=== PATIENT | female | born 1940 | race Caucasian/White ===

== ENCOUNTER 2019-03-21 18:00 | Inpatient (IN) ==
--- OUTSIDE RECORDS SUMMARY | 2019-03-21 20:43 | External Medical Summary | Continuity of Care Document ---
:1940 Author Name Janiya Monteiro, Provider Address Unavailable Unavailable , Care Team Providers Name Role Phone Unavailable Unavailable Unavailable Problems E. 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.1) (G06.1) Hypercholesterolemia (272.0) (E78.00) Hypertension (401.9) (I10) A-fib (427.31) (I48.91) Allergies and Adverse Reactions No Known Drug Allergies (Allergy) Medications Medications not documented Procedures History of carotid artery angioplasty St atus: Completed Immunizations Immunizations not documented Family History Mother Family history of arthritis (V17.7) (Z82.61) Status: Active Father Family history of arthritis (V17.7) (Z82.61) Status: Active Social History - Smoking Status Former smoker Plan of Treatment Planned Observations Planned Goals not documented Results No Known Results Results not documented Encounters Appointment; Zora Conte DO 16-May-2018 10:45 Encounter Diagnosis: Problem not documented
[2019-03-21] MEDS ORDERED: MAGNESIUM HYDROXIDE SUSP 30 ML UDC PO PRN ×2 (21:10→22:26)
[2019-03-21] MEDS ORDERED: ALUMINUM/MAGNESIUM SUSP 30 ML UDC PO PRN (21:10)
[2019-03-21] MEDS ORDERED: POLYETHYLENE (MIRALAX) 17 GM PACK PO PRN (21:10)
[2019-03-21] MEDS ORDERED: SODIUM CHLORIDE 0.9% 1000ML 1,000 ML IV SCH (21:15)
[2019-03-21] MEDS ORDERED: OXYCODONE/ACETAMINOPHEN 5mg/325mg TAB PO PRN (21:24)
[2019-03-21] MEDS ORDERED: HydrALAZINE 10 MG TAB PO PRN (21:25)
[2019-03-21 21:47] LABS: Basophils # (auto) 0.01 K/uL (0-0.2); Basophils % (auto) 0.1 %; Eosinophils # (auto) 0.01 K/uL (0-0.5); Eosinophils % (auto) 0.1 %; Hematocrit (blood only) 37.6 % (37-47); Hemoglobin 12.7 g/dL (12.0-16.0); Immature Granulocytes # (auto) 0.02 K/uL (0.00-0.02); Immature Granulocytes % (auto) 0.2 %; Lymphocytes # (auto) 1.42 K/uL (1.2-3.4); Lymphocytes % (auto) 14.3 %; Mean Corpuscular Hemoglobin 32.6 pg (25-34); Mean Corpuscular Volume 96.4 fL (80-100); Mean Platelet Volume 10.4 fL (7.4-10.4); Monocytes # (auto) 0.62 K/uL (0.11-0.59); Monocytes % (auto) 6.2 %; Neutrophils # (auto) 7.86 K/uL (1.4-6.5); Neutrophils % (auto) 79.1 %; Platelet Count 178 K/uL (130-400); RDW Coefficient of Variation 14.8 % (11.5-14.5); RDW Standard Deviation 51.8 fL (36.4-46.3); White Blood Count 9.94 K/uL (4.8-10.8)
[2019-03-21 22:03] LABS: Mean Corpuscular Hgb Conc 33.8 g/dL (32-36)
[2019-03-21 22:04] LABS: Albumin Level 3.3 gm/dl (3.4-5.0); BUN Creatinine Ratio 15.7 (10-20); Calcium 8.9 mg/dl (8.5-10.1); Creatinine Clr Calc Pharmacy 42.3 ml/min; Est GFR (African American) 78.9; Est GFR (Non-African American) 68.1; Potassium 3.4 mmol/L (3.5-5.1)
[2019-03-21 22:08] LABS: Globulin 3.4 gm/dl (2.5-4.0); Total Protein 6.7 gm/dl (6.4-8.2)
[2019-03-21] MEDS ORDERED: ALBUTEROL HFA 8 GM INHALER INH PRN (22:26)
[2019-03-21] MEDS ORDERED: OXYCODONE ACETAMINOPHEN PO PRN (22:26)
[2019-03-21] MEDS ORDERED: OXYCODONE HCL IR 5 MG TAB (IMMEDIATE RELEASE) PO PRN (22:42)
--- NOTE | 2019-03-21 22:45 | History & Physical Report ---
Date of Service March 21, 2019 Assessment & Plan (1) Hip fracture, left: Admit to PCU on telemetry VS Q4 hr CBC, CMP, daily Elevated BNP - 2822, trend down. keep NPO for now until hear from Dr. Mairo valdez. TTE Consult cardiology after TTE for preop eval per Dr. Martin. Pt is not on Eliquis for a fibs for one month. DVT ppx SCD-s , teds Pain management, Full Code Present on Admission?: Yes (2) Dyslipidemia: Continue with Zetia 10 mg p.o. daily, continue simvastatin 40 mg p.o. nightly, continue fish oil 2 caps p.o. daily Present on Admission?: Yes (3) Hypokalemia: Replenish potassium and keep above 4. Magnesium pending Present on Admission?: Yes (4) Hypertension: Continue home medicine: Aspirin 81 mg p.o. every morning losartan 100 mg p.o. every morning, metoprolol 12.5 mg p.o. twice daily. Present on Admission?: Yes (5) Atrial fibrillation: EKG shows the patient is in normal sinus rhythm. T wave inversions in lateral leads. Repeat EKG in a.m. left bundle branch block. Present on Admission?: Yes (6) Depression: Continue citalopram 40 mg p.o. daily (7) Rheumatoid arthritis: Continue methotrexate 10 mg p.o. weekly. Present on Admission?: Yes History of Present Illness Chief Complaint: Fall, left hip fracture Primary Care Provider: NO PCP Patient is a 79 years old female with past medical history of prior paroxysmal atrial fibrillation with RVR, hypertension, RA, depression, dyslipidemia, pulmonary hypertension, mitral regurgitation, anemia, moderate dementia , epidural abscess status post spinal cord procedure by Dr. Vega a year ago who is direct admit from [facility] and status post fall that occurred this morning while patient was gardening. Per patient daughter who does not live with her she reports that possibly patient blacked out and that is why she fell. She said months ago patient had similar syncopal episode. Patient was in the past with atrial fibrillation and for 1 months she did not fill her Eliquis and because of it she was taken off of Eliquis by her primary physician. Today patient is in normal sinus rhythm. Patient is poor historian. Pt daughter denies that pt has fever, chills, chest pain, SOB , abdominal pain, frequency and urgency. She said that she does not remember exactly her fall. She remembers that she sat for a long time in her garden after she fell. Patient said for pain she only take Aleve. Labs were reviewed: Viable cell 9.94, hemoglobin 12.7, hematocrit 37.6, platelets 178, PT PTT INR pending, sodium 139,K 3.4, Chloride 109, BUN 6, creatinine 0.82, GFR 68.1, BNP 2822. CXR preop pending, XR L Hip Pending, TTE pending. Consult Ortho. Allergies Allergy/AdvReac Type Severity Reaction Status Date / Time No Known Allergies Allergy Unverified 03/15/18 14:35 Home Medications Home Medications Medication Instructions Recorded Confirmed Type ascorbate calcium-bioflavonoid 1 tab PO DAILY 03/12/18 03/12/18 History [Maribel-C with Bioflavonoids] calcium carbonate 600 mg PO BID 03/12/18 03/12/18 History citalopram 40 mg PO DAILY 03/12/18 03/12/18 History cranberry extract 250 mg PO DAILY 03/12/18 03/12/18 History ezetimibe [Zetia] 10 mg PO DAILY 03/12/18 03/12/18 History fluticasone propion-salmeterol 1 inh INHALATION BID 03/12/18 03/12/18 History [Advair Diskus] metoprolol tartrate 12.5 mg PO BID 03/12/18 03/12/18 History montelukast [Singulair] 10 mg PO PM 03/12/18 03/12/18 History multivitamin 1 tab PO DAILY 03/12/18 03/12/18 History omega 2-uvr-wfh-fish oil [Fish Oil] 2 cap PO DAILY 03/12/18 03/12/18 History simvastatin [Zocor] 40 mg PO HS 03/12/18 03/12/18 History aspirin [Ecotrin Low Strength] 81 mg PO QAM #30 tab 03/21/18 Rx garlic 500 mg PO DAILY 03/21/19 03/21/19 History losartan 100 mg PO QAM 03/21/19 03/21/19 History methotrexate sodium 10 mg PO WK 03/21/19 03/21/19 History Past Med/Surg History Medical History Atrial fibrillation Hx: UTI (urinary tract infection) Family History Other Family history non-contributory Social History Preferred Language: Greenlandic Communication Ability: Effective Visual Impairment: Limited Insect Control Inspector Required: No Beliefs That Will Affect Care: Cheondoism Cheondoism Beliefs: islam Current Living Situation: Family Other Information That Helps Us Care for You: No Feels Safe at Home: Yes Safety Concerns: Feels Safe At This Time Smoking Status: Current every day smoker Second Hand Exposure: No ; Hx Alcohol Use: No Hx Substance Use: No Review of Systems Review of Systems: All systems reviewed & are unremarkable except as noted in HPI & below Physical Exam Constitutional: WD/WN, vitals as above well developed and + frail appearing Eyes: PERRL, conjunctivae normal, anicteric sclerae ENMT: external ear and nose normal, oropharynx normal Neck: trachea midline, no thyromegaly Respiratory: normal respiratory effort, lungs clear to auscultation Cardiovascular: Heart Sounds: normal S1, normal S2 and + murmur Palpation: + palpable S4 Vessels: + JVD Gastrointestinal (Abdomen): normal bowel sounds, soft, nontender, no hepatosplenomegaly Musculoskeletal: Ankle: + limited ROM of ankle left hip neck fracture, Skin: no rashes, warm and dry Neurologic: patellar DTR's 2+ bilat, sensation intact Lymphatic: no cervical or axillary lymphadenopathy Results & Data Vital Signs (Past 12 Hours) Vital Signs Temp Pulse Resp BP Pulse Ox 03/21/19 20:30 36.5 C 97 H 18 216/97 H 96 Code Status & VTE Plan Code Status full code VTE Prophylaxis Plan VTE Prophylaxis will be ordered: No PG Care Time/CCT Total # of Minutes Spent Total Time Spent with Patient: Total time spent is greater than 50% in coordination of care (as documented) at patient's floor/unit and/or counseling patient:
--- NOTE | 2019-03-21 22:52 | XRay Report ---
XR chest 1V portable CLINICAL HISTORY: 79 years-old Female presenting with pre op. TECHNIQUE: Portable supine AP view of the chest was obtained. COMPARISON: 03/18/2018. FINDINGS: Atherosclerosis of the aortic arch. Cardiac silhouette enlarged. Bilateral hilar prominence may be va scular. No focal opacity. No large effusion or pneumothorax. Degenerative changes of the thoracic spi ne. Posterior lumbar fusion hardware at the thoracolumbar junction. Overlying external leads in the r ight upper quadrant to grating evaluation. Upper abdomen normal. IMPRESSION: 1. Cardiomegaly. 2. Bilateral hilar prominence may be vascular in etiology. The appearance is similar to prior. No ot her convincing evidence of acute cardiopulmonary disease. Electronically signed by: Danis Valles M.D. 03/21/2019 10:50 PM
--- NOTE | 2019-03-21 22:53 | XRay Report ---
XR hip LT min 2V CLINICAL HISTORY: 79 years-old Female presenting with left hip fracture. TECHNIQUE: Frontal and crosstable lateral views of the left hip were obtained. COMPARISON: CT of abdomen and pelvis from 03/12/2018. FINDINGS: Transcervical fracture of the left femoral neck with one half shaft width proximal and anterior displ acement of the distal fracture fragment. No angulation. The left femoral head remains congruent in th e acetabulum. Visualized portion of the pelvis intact. No advanced degenerative change. No radiograph ic soft tissue abnormality. IMPRESSION: One half shaft width proximal and anterior displacement at the transcervical left femoral neck fractu re. Electronically signed by: Danis Valles M.D. 03/21/2019 10:52 PM
[2019-03-21 22:55] LABS: INR 1.1 (0.9-1.1); Partial Thromboplastin Ratio 0.9; Partial Thromboplastin Time 25.5 Seconds (21.0-31.0); Prothrombin Time 10.8 Seconds (9.0-12.0)
[2019-03-21] MEDS: MoRPHine SULFATE 2 MG/ML CARP IV PRN (22:55)
[2019-03-21] MEDS ORDERED: POTASSIUM CHLORIDE 20 MEQ TABCR PO ONE (23:00)
[2019-03-22] MEDS: MoRPHine SULFATE 2 MG/ML CARP IV PRN ×4 (00:57→11:39)
[2019-03-22 06:28] LABS: Basophils # (auto) 0.02 K/uL (0-0.2); Basophils % (auto) 0.2 %; Eosinophils # (auto) 0.11 K/uL (0-0.5); Eosinophils % (auto) 1.3 %; Hematocrit (blood only) 36.3 % (37-47); Immature Granulocytes # (auto) 0.02 K/uL (0.00-0.02); Immature Granulocytes % (auto) 0.2 %; Lymphocytes % (auto) 27.2 %; Mean Corpuscular Hemoglobin 32.4 pg (25-34); Mean Corpuscular Hgb Conc 33.1 g/dL (32-36); Mean Corpuscular Volume 98.1 fL (80-100); Mean Platelet Volume 10.5 fL (7.4-10.4); Monocytes # (auto) 0.77 K/uL (0.11-0.59); Monocytes % (auto) 9.1 %; Neutrophils # (auto) 5.23 K/uL (1.4-6.5); Platelet Count 174 K/uL (130-400); RDW Coefficient of Variation 15.1 % (11.5-14.5); RDW Standard Deviation 53.6 fL (36.4-46.3); White Blood Count 8.45 K/uL (4.8-10.8)
[2019-03-22 07:32] LABS: Albumin Level 3.1 gm/dl (3.4-5.0); BUN Creatinine Ratio 14.5 (10-20); Calcium 8.7 mg/dl (8.5-10.1); Creatinine Clr Calc Pharmacy 42.9 ml/min; Est GFR (African American) 80.1; Est GFR (Non-African American) 69.1; Total Protein 6.1 gm/dl (6.4-8.2)
[2019-03-22] MEDS: FLUTICASONE/SALMETEROL 250/50 (ADVAIR) 14 PUFF/1 INHALER INH SCH ×2 (08:31→21:41)
[2019-03-22] MEDS: FOLIC ACID 1 MG TAB PO SCH (08:32)
[2019-03-22] MEDS: POTASSIUM CHLORIDE 10 MEQ TABCR PO SCH (08:32)
[2019-03-22] MEDS: EZETIMIBE 10 MG TABLET PO SCH (08:32)
[2019-03-22] MEDS: METOPROLOL TARTRATE 25 MG TAB PO SCH ×2 (08:33→21:43)
[2019-03-22] MEDS: CITALOPRAM 40 MG TAB PO SCH (08:33)
[2019-03-22] MEDS: DOCUSATE SODIUM/SENNA 50/8.6MG TAB PO SCH (08:33)
[2019-03-22] MEDS: MULTIVITAMIN TAB PO SCH (08:34)
[2019-03-22] MEDS: CALCIUM CARBONATE 1250MG TAB PO SCH ×2 (08:34→21:42)
[2019-03-22] MEDS: OMEGA-3 (PURIFIED FISH OIL) 1 GM CAP PO SCH (08:34)
[2019-03-22] MEDS: CHOLECALCIFEROL 1,000 UNITS TAB PO SCH (08:34)
[2019-03-22] MEDS: OLMESARTAN MEDOXOMIL 20 MG TAB PO SCH (08:40)
[2019-03-22] MEDS ORDERED: NON-FORMULARY MEDICATION (Ascorbate Calcium-Bioflavonoid [Ester-C With Bioflavonoids] 1 TA PO SCH (09:00)
[2019-03-22] MEDS ORDERED: lisinopriL 20 MG TAB PO SCH (09:00)
[2019-03-22] MEDS ORDERED: CRANBERRY EXTRACT 250 MG PO SCH (09:00)
[2019-03-22] MEDS: ACETAMINOPHEN 325 MG TAB PO PRN (09:06)
--- NOTE | 2019-03-22 12:03 | Orthopedic Consultation ---
Date of Consultation March 22, 2019 Assessment & Plan (1) Hip fracture, left: Pending medical clearance, patient will need a bipolar hemiarthroplasty versus total hip arthroplasty. This will be decided prior surgery by the operating surgeon. Her daughter is present and states that she is basically a household ambulator. She does not go out very often. She no longer drives. Plan for the OR later this afternoon pending clearance. Supervising Physician Co-Signing Physician Notes I have indicated the patient for left hip hemiarthroplasty. The risk benefits complications alternatives of the surgery were explained to the patient and family member present at bedside in detail which include however not limited to infections, blood clots, acute blood loss, injury to surrounding nerves, bone, vessels, soft tissue, arthrofibrosis, chronic pain, hip dislocation, leg length discrepancy, failure of components or implants. Need for repeat surgery, loss of limb and loss of life. Alternatives include no surgery which could result in worsening of clinical pictures and symptoms, non-amatory status and associated complications. The patient and family member wish to proceed with surgical intervention at this time and informed consent was obtained. Antibiotics process consultant the OR Hold anticoagulation N.p.o. Bedrest History of Present Illness Reason for Consultation: Left hip fracture Attending Physician: Jose C Adame History of Present Illness Patient is a 79-year-old white female who was admitted under the medicine service last night for left hip fracture. Currently the patient is awake and alert and has history of dementia. She is pleasant and cooperative. Her daughter is present who is power of privacy attorney. Patient states that she had fallen the previous evening. The question of whether she had passed out and fallen. She states she bumped her head but it no longer hurts. When she fell she had moderate hip pain and was having difficulty ambulating. She denies any shortness of breath or chest pain prior to or after the fall. She was brought to the emergency room where she was seen by the staff, x-rays were taken and found that she had a displaced femoral neck fracture. He was admitted under the hospitalist service and we have been asked to take care of her fracture. Currently she is pleasant and alert. She answers some questions appropriately. She has trouble remembering the evening of her fall. She has no other complaints other than left hip pain at this point in time. Allergies Allergy/AdvReac Type Severity Reaction Status Date / Time No Known Allergies Allergy Unverified 03/15/18 14:35 Home Medications Home Medications Medication Instructions Recorded Confirmed Type ascorbate calcium-bioflavonoid 1 tab PO DAILY 03/12/18 03/12/18 History [Maribel-C with Bioflavonoids] calcium carbonate 600 mg PO BID 03/12/18 03/12/18 History citalopram 40 mg PO DAILY 03/12/18 03/12/18 History cranberry extract 250 mg PO DAILY 03/12/18 03/12/18 History ezetimibe [Zetia] 10 mg PO DAILY 03/12/18 03/12/18 History fluticasone propion-salmeterol 1 inh INHALATION BID 03/12/18 03/12/18 History [Advair Diskus] metoprolol tartrate 12.5 mg PO BID 03/12/18 03/12/18 History montelukast [Singulair] 10 mg PO PM 03/12/18 03/12/18 History multivitamin 1 tab PO DAILY 03/12/18 03/12/18 History omega 1-lyi-yqf-fish oil [Fish Oil] 2 cap PO DAILY 03/12/18 03/12/18 History simvastatin [Zocor] 40 mg PO HS 03/12/18 03/12/18 History aspirin [Ecotrin Low Strength] 81 mg PO QAM #30 tab 03/21/18 Rx garlic 500 mg PO DAILY 03/21/19 03/21/19 History losartan 100 mg PO QAM 03/21/19 03/21/19 History methotrexate sodium 10 mg PO WK 03/21/19 03/21/19 History Patient History Medical History COPD (chronic obstructive pulmonary disease) LBBB (left bundle branch block) Rheumatoid arthritis Depression Atrial fibrillation Anemia Tricuspid regurgitation (Chronic) Mitral regurgitation (Chronic) Pulmonary hypertension (Chronic) Hypertension (Chronic) Atrial fibrillation Hx: UTI (urinary tract infection) Surgical History Hx of lumbosacral spine surgery 03/15/2018. Epidural abscess. GETA. No issues. Family History Other Family history non-contributory Social History Preferred Language: Yi Communication Ability: Effective Visual Impairment: Limited Wardrobe Mistress Required: No Beliefs That Will Affect Care: Congregational Congregational Beliefs: samaritan Current Living Situation: Family Other Information That Helps Us Care for You: No Feels Safe at Home: Yes Safety Concerns: Feels Safe At This Time Smoking Status: Current every day smoker Do You Dip or Chew Tobacco: No ; Second Hand Exposure: No ; Hx Alcohol Use: No Hx Substance Use: No Review of Systems Review of Systems: All systems reviewed & are unremarkable except as noted in HPI & below Constitutional: as per Subjective / HPI Physical Exam Physical Exam: On examination she is a 79-year-old white female who appears younger than her stated age. She is pleasant and cooperative. Focusing exam in the left lower extremity, it is shortened and externally rotated compared to the right. She has good range of motion of her left ankle and toes. No overt swelling noted. Her left knee appears benign with no swelling or bruising. Range of motion is not done secondary to left hip fracture. Left hip is not taken through range of motion due to fracture. She has no overt ecchymosis noted over the lateral hip and is mildly tender on palpation. Right lower extremity is within normal limits at the hip knee and ankle with good range of motion. Upper extremities are essentially unaffected. She is nontender in the shoulders elbows and wrists. She did get a small abrasion noted on the left elbow but has good range of motion. Distal pulses are equal bilaterally. She denies any cervical neck pain, thoracic or low back pain at this time. No gross motor or sensory loss at this time. LLE NVSI +EHL/FHL/TA/GS SILT grossly, +2 DP pulse, compartments soft NT, essential tremor Constitutional: WD/WN, vitals as above Results & Data Vital Signs (Past 12 Hours) Vital Signs Temp Pulse Pulse Resp BP Pulse Ox 03/22/19 07:59 72 03/22/19 07:12 36.5 C 75 19 156/71 H 94 03/22/19 04:20 36.9 C 72 20 149/57 H 96 Diagnostic Findings XR hip LT min 2V CLINICAL HISTORY: 79 years-old Female presenting with left hip fracture. TECHNIQUE: Frontal and crosstable lateral views of the left hip were obtained. COMPARISON: CT of abdomen and pelvis from 03/12/2018. FINDINGS: Transcervical fracture of the left femoral neck with one half shaft width proximal and anterior displacement of the distal fracture fragment. No angulation. The left femoral head remains congruent in the acetabulum. Visualized portion of the pelvis intact. No advanced degenerative change. No radiographic soft tissue abnormality. IMPRESSION: One half shaft width proximal and anterior displacement at the transcervical left femoral neck fracture.
[2019-03-22] MEDS ORDERED: ONDANSETRON INJ 2 MG/ML 2 ML VIAL ONE (12:16)
[2019-03-22] MEDS ORDERED: PHENYLEPHRINE HCL 10 MG/ML VIAL ONE (12:16)
[2019-03-22] MEDS ORDERED: GLYCOPYRROLATE 0.2 MG/ML VIAL ONE (12:16)
[2019-03-22] MEDS ORDERED: NEOSTIGMINE METHYLSULFATE 5 MG/5 ML SYR ONE (12:16)
[2019-03-22] MEDS ORDERED: DEXAMETHASONE SOD INJ 4 MG/ML VIAL ONE (12:16)
[2019-03-22] MEDS ORDERED: ePHEDrine sulfate 50 MG/ML SYR ONE (12:16)
[2019-03-22] MEDS ORDERED: PROPOFOL IV EMULSION 10 MG/ML 20 ML VIAL IV ONE (12:16)
[2019-03-22] MEDS ORDERED: LIDOCAINE HCL 2% 2 ML VIAL/AMP(20MG/ML) INFIL ONE (12:16)
[2019-03-22] MEDS ORDERED: ROCURONIUM BROMIDE 10 MG/ML 5 ML VIAL ONE (12:16)
--- NOTE | 2019-03-22 12:51 | XRay Report ---
XR femur LT 2V routine CLINICAL HISTORY: fracture trauma COMPARISON: 03/21/2018 DISCUSSION: Unchanged appearance of the subcapital fracture left femur. There continues to be a compo nent of superior migration of the left femoral shaft. This is unchanged. There is no evidence for sof t tissue swelling. IMPRESSION: 1. Unchanged subcapital fracture left hip. 2. Unchanged mild superior migration left femoral shaft. The above report was generated using voice recognition software. It may contain grammatical, syntax or spelling errors. Electronically signed by: Devonte Cuba M.D. 03/22/2019 12:50 PM
[2019-03-22] MEDS ORDERED: fentaNYL citrate 100 MCG/2 ML VIAL ONE ×2 (13:06→16:34)
[2019-03-22] MEDS ORDERED: MIDAZOLAM HCL 1 MG/ML 2ML VIAL ONE (13:06)
--- NOTE | 2019-03-22 13:19 | Hospitalist Progress Note ---
Date of Service March 22, 2019 Assessment & Plan (1) Hip fracture, left: to OR today for ORIF. likely osteoporotic hip fracture. from cardiopulmonary standpoint she is likely moderate risk for cardiovascular events. chronic TURNER is likely due to COPD; she has no known CAD but could easily have some based on years of tobacco usage. echo is still pending but past echos did now show LV dysfunction. she is at risk of perioperative PAF, diastolic CHF, etc. Dr Maldonado to see from cardiology but I do not suspect she needs any additional CV testing prior to the OR. check vitamin D level AM. defer DVT proph selection to orthopedics. pain control in meantime. (2) Syncope: Etiology uncertain but lack of prodromal symptoms is highly suspicious for arrythmiogenic causes (bradycardia, pauses, etc). Dr Maldonado has seen in consult today. Could implant a loop recorder to try and capture the electrical cause of these events however it may simply be safer for the patient to undergo pacemaker placement. Continue telemetry. await formal echo reading. appreciate Dr Maldonado's consultation. (3) LBBB (left bundle branch block): had incomplete LBBB in 2018; now has LBBB. doubt underlying CAD as cause. echo pending to check LV function. LBBB may be on basis of electrical axis deterioration/conduction disease. (4) Dyslipidemia: Continue with Zetia 10 mg p.o. daily, continue simvastatin 40 mg p.o. nightly, continue fish oil 2 caps p.o. daily (5) Hypokalemia: Replenished and improved (6) Hypertension: Continue metoprolol 12.5 mg p.o. twice daily but hold ARB (7) Atrial fibrillation: h/o PAF. is not on chronic anticoagulation. see discussion above in "syncope." cont BB. (8) Depression: Continue citalopram 40 mg p.o. daily (9) Rheumatoid arthritis: Continue methotrexate 10 mg p.o. weekly. no flare at this time. (10) COPD (chronic obstructive pulmonary disease): cont advair cont albuterol prn no exacerbation at this time chronic TURNER is likely due to COPD (11) Pulmonary hypertension: could be due to COPD likely contributing to TURNER (12) Chronic kidney disease, stage 3a: baseline CrCl 40s/50s bmp am (13) Candidiasis of mouth and esophagus: start nystatin 5cc qid (14) DVT prophylaxis: defer selection to orthopedics daughter extensively updated today Subjective pt was resting in bed during my visit. she c/o left hip pain only. since arrival to hospital tele has shown NSR without pauses, bradycardia, AV block, or other dysrhythmia. daughter at bedside. pt and daughter state there have been at least 2 episodes of syncope, perhaps 3, and 1 of them was fully witnessed by her daughter. there is NO prodromal symptoms of dizziness, lightheadedness, cp, palpitations, etc prior to the spells.. daughter doesn't recall her looking pale, diaphoretic, etc during the spells -- she "simply goes blank". she has NOT had any chest pain with activities over the last few months. she has baseline TURNER - present for long time - in setting of known COPD. she is an active smoker. TURNER has been getting worse for some time as confirmed by daughter. despite TURNER she has been able to carry on most ADLs at home and again was gardening yesterday. no h/o CAD. no family h/o CAD. Review of Systems Constitutional: no fever Respiratory: + dyspnea on exertion (baseline); no cough Cardiovascular: + syncope; no chest pain, no orthopnea, no paroxysmal nocturnal dyspnea, no palpitations, no lightheadedness and no edema Gastrointestinal: no abdominal pain, no nausea and no vomiting Physical Exam Constitutional: + thin; no acute distress and no altered mental status ENMT: Mouth: + oral mucosal abnormality (?mild thrush plaques) Respiratory: normal respiratory effort, lungs clear to auscultation Cardiovascular: Rate/Rhythm: regular rate and regular rhythm Heart Sounds: normal S1 and normal S2; no murmur Vessels: posterior tibial pulses present and dorsalis pedis pulses present; no JVD Extremities: no edema Gastrointestinal (Abdomen): normal bowel sounds, soft, nontender, no he patosplenomegaly Musculoskeletal: left hip externally rotated; left leg mildly shortened Psychiatric: A+Ox3, euthymic affect Results & Data Vital Signs (Past 12 Hours) Vital Signs Temp Pulse Pulse Resp BP Pulse Ox 03/22/19 07:59 72 03/22/19 07:12 36.5 C 75 19 156/71 H 94 03/22/19 04:20 36.9 C 72 20 149/57 H 96 Laboratory Results Laboratory Results - last 24 hr 03/22/19 03/22/19 03/22/19 06:05 06:05 14:44 WBC 8.45 RBC 3.70 L Hgb 12.0 Hct 36.3 L MCV 98.1 MCH 32.4 MCHC 33.1 RDW Std Deviation 53.6 H RDW Coeff of Giuliana 15.1 H Plt Count 174 MPV 10.5 H Immature Gran % (Auto) 0.2 Neut % (Auto) 62.0 Lymph % (Auto) 27.2 [place] % (Auto) 9.1 Eos % (Auto) 1.3 Baso % (Auto) 0.2 Immature Gran # (Auto) 0.02 Neut # (Auto) 5.23 Lymph # (Auto) 2.30 [place] # (Auto) 0.77 H Eos # (Auto) 0.11 Baso # (Auto) 0.02 Sodium 140 Potassium 4.0 D Chloride 110 H Carbon Dioxide 25 Anion Gap 6.0 BUN 12 Creatinine 0.81 Est Cr Clr Drug Dosing 42.9 Est GFR ( Amer) 80.1 Est GFR (Non-Af Amer) 69.1 BUN/Creatinine Ratio 14.5 Glucose 102 H Calcium 8.7 Total Bilirubin 1.0 AST 26 ALT 21 Alkaline Phosphatase 66 Total Protein 6.1 L Albumin 3.1 L Globulin 3.0 Albumin/Globulin Ratio 1.0 Lyme Disease IgG Ab Lyme Disease IgM Ab Blood Type O Positive Antibody Screen NEGATIVE 03/22/19 14:48 WBC RBC Hgb Hct MCV MCH MCHC RDW Std Deviation RDW Coeff of Giuliana Plt Count MPV Immature Gran % (Auto) Neut % (Auto) Lymph % (Auto) [place] % (Auto) Eos % (Auto) Baso % (Auto) Immature Gran # (Auto) Neut # (Auto) Lymph # (Auto) [place] # (Auto) Eos # (Auto) Baso # (Auto) Sodium Potassium Chloride Carbon Dioxide Anion Gap BUN Creatinine Est Cr Clr Drug Dosing Est GFR ( Amer) Est GFR (Non-Af Amer) BUN/Creatinine Ratio Glucose Calcium Total Bilirubin AST ALT Alkaline Phosphatase Total Protein Albumin Globulin Albumin/Globulin Ratio Lyme Disease IgG Ab Negative Lyme Disease IgM Ab Negative Blood Type Antibody Screen PG Care Time/CCT Total # of Minutes Spent Total Time Spent with Patient: Total time spent is greater than 50% in coordination of care (as documented) at patient's floor/unit and/or counseling patient: (1) Rheumatoid arthritis Rheumatoid arthritis location: multiple sites Rheumatoid factor presence: unspecified presence Qualified Code(s): M06.9 - Rheumatoid arthritis, unspecif ied (2) Atrial fibrillation Atrial fibrillation type: paroxysmal Qualified Code(s): I48.0 - Paroxysmal atrial fibrillation (3) Depression Depression Type: other depression Qualified Code(s): F32.89 - Other specified depressive episodes (4) COPD (chronic obstructive pulmonary disease) COPD type: unspecified COPD Qualified Code(s): J44.9 - Chronic obstructive pulmonary disease, unspecified (5) Hip fracture, left Encounter type: subsequent encounter Fracture type: closed Fracture healing: with routine healing Qualified Code(s): S72.002D - Fracture of unspecified part of neck of left femur, subsequent encounter for closed fracture with routine healing (6) Hypertension Hypertension type: essential hypertension Qualified Code(s): I10 - Essential (primary) hypertension (7) Syncope Syncope type: unspecified Qualified Code(s): R55 - Syncope and collapse
--- NOTE | 2019-03-22 14:16 | Anesthesiology Consultation ---
Date of Service March 22, 2019 Assessment & Plan (1) Encounter for pre-operative examination: Chart Review Chart Review: Acceptable Risk for Surgery and Patient NOT seen in Pre Admission Testing Consults Requested none History Surgery Operation Date: 03/22/19 11:30 Proposed Procedures p Left Bipolar Hip - Hima Rice DO Height/Weight Height: 5 ft 6 in Weight: 48.2 kg Allergies Allergy/AdvReac Type Severity Reaction Status Date / Time No Known Allergies Allergy Unverified 03/15/18 14:35 Medications Home Medications Medication Instructions Recorded Confirmed Last Taken ascorbate calcium-bioflavonoid 1 tab PO DAILY 03/12/18 03/12/18 Unknown [Maribel-C with Bioflavonoids] calcium carbonate 600 mg PO BID 03/12/18 03/12/18 Unknown citalopram 40 mg PO DAILY 03/12/18 03/12/18 Unknown cranberry extract 250 mg PO DAILY 03/12/18 03/12/18 Unknown ezetimibe [Zetia] 10 mg PO DAILY 03/12/18 03/12/18 Unknown fluticasone propion-salmeterol 1 inh INHALATION BID 03/12/18 03/12/18 Unknown [Advair Diskus] metoprolol tartrate 12.5 mg PO BID 03/12/18 03/12/18 Unknown montelukast [Singulair] 10 mg PO PM 03/12/18 03/12/18 Unknown multivitamin 1 tab PO DAILY 03/12/18 03/12/18 Unknown omega 0-tes-viy-fish oil [Fish Oil] 2 cap PO DAILY 03/12/18 03/12/18 Unknown simvastatin [Zocor] 40 mg PO HS 03/12/18 03/12/18 Unknown aspirin [Ecotrin Low Strength] 81 mg PO QAM #30 tab 03/21/18 Unknown garlic 500 mg PO DAILY 03/21/19 03/21/19 Unknown losartan 100 mg PO QAM 03/21/19 03/21/19 Unknown methotrexate sodium 10 mg PO WK 03/21/19 03/21/19 Unknown Active Medications Generic Name Dose Route Start Last Admin Trade Name Freq PRN Reason Stop Dose Admin Acetaminophen 650 mg 03/21/19 21:10 03/22/19 09:06 Tylenol PO 04/20/19 21:09 650 mg Q4H PRN Administration Pain or Fever Calcium Carbonate 1,250 mg 03/22/19 09:00 03/22/19 08:34 Os-Jairo 500 PO 04/21/19 08:59 1,250 mg BID MARY Administration Protocol Citalopram Hydrobromide 40 mg 03/22/19 09:00 03/22/19 08:33 Celexa PO 04/21/19 08:59 40 mg DAILY MARY Administration Ezetimibe 10 mg 03/22/19 09:00 03/22/19 08:32 Zetia PO 04/21/19 08:59 10 mg DAILY MARY Administration Fish Oil 2 gm 03/22/19 09:00 03/22/19 08:34 [place]-3 (Purified Fish Oil) PO 04/21/19 08:59 2 gm DAILY MARY Administration Folic Acid 1 mg 03/22/19 09:00 03/22/19 08:32 Folvite PO 04/21/19 08:59 1 mg DAILY MARY Administration Hydralazine HCl 10 mg 03/21/19 21:25 03/21/19 22:52 Apresoline PO 04/21/19 08:59 10 mg TID PRN Administration for blood pressure Lisinopril 20 mg 03/22/19 09:00 03/22/19 08:32 Zestril PO 04/21/19 08:59 20 mg QAM MARY Administration Metoprolol Tartrate 12.5 mg 03/22/19 09:00 03/22/19 08:33 Lopressor PO 04/21/19 08:59 12.5 mg BID MARY Administration Morphine Sulfate 1 mg 03/21/19 21:24 03/22/19 11:39 Morphine Sulfate IV 04/04/19 21:23 1 mg Q2H PRN Administration Pain Multivitamins 1 tab 03/22/19 09:00 03/22/19 08:34 Multivitamin Tab PO 04/21/19 08:59 1 tab DAILY MARY Administration Olmesartan 40 mg 03/22/19 09:00 03/22/19 08:40 Benicar PO 04/21/19 08:59 40 mg DAILY MARY Administration Potassium Chloride 10 meq 03/22/19 09:00 03/22/19 08:32 Klor-Con M10 PO 04/21/19 08:59 10 meq DAILY MARY Administration Fluticasone/Salmeterol 1 puffs 03/22/19 09:00 03/22/19 08:31 Advair Diskus 250/50 INH 04/21/19 08:59 1 puffs BID MARY Administration Senna/Docusate Sodium 1 tab 03/22/19 09:00 03/22/19 08:33 Senokot S PO 04/21/19 08:59 1 tab QAM MARY Administration Vitamin D 1,000 units 03/22/19 09:00 03/22/19 08:34 Vitamin D3 PO 04/21/19 08:59 1,000 units DAILY MARY Administration NPO Date Last Intake of Fluids: 03/22/19 Time Last Intake of Fluids: 12:00 Last Intake of Fluids Comment: Sips meds Date Last Intake of Solids: 03/21/19 Time Last Intake of Solids: 10:00 Past Medical History Medical History COPD (chronic obstructive pulmonary disease) LBBB (left bundle branch block) Rheumatoid arthritis Depression Atrial fibrillation Anemia Tricuspid regurgitation (Chronic) Mitral regurgitation (Chronic) Pulmonary hypertension (Chronic) Hypertension (Chronic) Atrial fibrillation Hx: UTI (urinary tract infection) Exercise / Class Metabolic Activity III < 4 Walking/Shop/Light housework Past Family History Family History Other Family history non-contributory Past Surgical History Surgical History Hx of lumbosacral spine surgery 03/15/2018. Epidural abscess. GETA. No issues. Past Anesthesia History No Hx of Anesthesia Complications and No Family Hx of Anesthesia Complications History of PONV No Hx of PONV and No Hx of Motion Sickness Social History Smoking Status: Current every day smoker Do You Dip or Chew Tobacco: No Hx Alcohol Use: No Hx Substance Use: No Physical Exam Vital Signs Last Vital Signs Temp 37.2 C 03/22/19 14:38 Pulse 67 03/22/19 14:38 Resp 18 03/22/19 14:38 BP 168/79 H 03/22/19 14:38 Pulse Ox 95 03/22/19 14:38 Testing Laboratory Results 03/22/19 06:05 03/22/19 06:05 PT 10.8 Seconds (9.0-12.0) 03/21/19 21:33 INR 1.1 (0.9-1.1) 03/21/19 21:33 APTT 25.5 Seconds (21.0-31.0) 03/21/19 21:33 Electrocardiogram Date: 03/21/19 Findings: + NSR @ (81) Poor data quality, interpretation may be adversely affected Normal sinus rhythm Left bundle branch block Abnormal ECG When compared with ECG of 12-MAR-2018 18:37, Premature atrial complexes are no longer Present Left bundle branch block is now Present Echocardiogram Date: 03/13/18 Normal BiV systolic function. Normal Left ventricular wall motion Moderate LVH Moderate MR, TR Moderately increased RV systolic pressure. No . Other Testing echo 03/22/19. no sig change from 2018. ef 60%
[2019-03-22] MEDS ORDERED: BACITRACIN INJ 50,000 UNIT VIAL ONE (14:41)
[2019-03-22] MEDS ORDERED: ePHEDrine sulfate 50 MG/ML AMP IV PRN (15:04)
[2019-03-22] MEDS ORDERED: ONDANSETRON INJ 2 MG/ML 2 ML VIAL IV PRN (15:04)
[2019-03-22] MEDS ORDERED: fentaNYL citrate 100 MCG/2 ML VIAL IV PRN (15:04)
[2019-03-22] MEDS ORDERED: ATROPINE SULFATE 0.1 MG/ML 10ML SYR IV PRN (15:04)
[2019-03-22] MEDS ORDERED: ROPIVACAINE 0.5% HCL/PF 150 MG, BUPIVACAINE 0.5% MPF 30 ML, EPINEPHrine 30MG/30ML (OR U... INSTIL SCH (15:30)
[2019-03-22] MEDS ORDERED: CEFAZOLIN 1000MG 1,000 MG/7.5 ML SYR IV ONE (15:42)
--- NOTE | 2019-03-22 15:47 | History & Physical Bridge Note ---
Date of Service March 22, 2019 History & Physical Bridge Note I have examined the patient, reviewed the History & Physical and in the interval since the performance of the History & Physical I have noted the following changes of clinical significance: no changes noted
[2019-03-22] MEDS ORDERED: CEFAZOLIN 1,000 MG/7.5 ML IV PUSH IV ONE (15:50)
--- NOTE | 2019-03-22 16:06 | Cardiology Consultation ---
Date of Consultation March 22, 2019 Assessment & Plan (1) Syncope: She presents with her third sudden syncopal event, all without prodrome and all brief. On this occasion she fell on cement and broke her hip. Given her left bundle branch block and the sudden brief nature of these events the most likely etiology is cardiac, most likely transient bradycardia. Tachycardia is possible, she does have a history of palpitations but not associated with hemodynamic symptoms and she did not have palpitations associated with these events. We do need to try to either find out why she has these events (which would require loop recorder) or we can treat the most likely cause of the event, which would be bradycardia, which would require a pacemaker. Coincidently her sister had a similar sequence of events and now has a pacemaker after having a loop recorder in place. Her and her daughter are leaning toward this option. In the meantime I think she should go ahead and have her hip surgery, I would recommend attaching her to an external temporary pacemaker during surgery in case she would develop heart block. I do not think a temporary pacemaker is indicated. (2) LBBB (left bundle branch block): She has a left bundle branch block pattern, she has had progressive AV conduction disease in the past has not had normal conduction but her QRS is now wider. This suggests progressive disease. I am going to order a Lyme titer to make sure it is not Lyme disease since that is treatable, if not I suspect most likely cause of her syncope was heart block. 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 That is associate with palpitations and she has not had hemodynamic symptoms when she had the tachycardia. I doubt this is a cause of her syncopal events. Supervising Physician Co-Signing Physician Notes I have indicated the patient for left hip hemiarthroplasty. The risk benefits complications alternatives of the surgery were explained to the patient and family member present at bedside in detail which include however not limited to infections, blood clots, acute blood loss, injury to surrounding nerves, bone, vessels, soft tissue, arthrofibrosis, chronic pain, hip dislocation, leg length discrepancy, failure of components or implants. Need for repeat surgery, loss of limb and loss of life. Alternatives include no surgery which could result in worsening of clinical pictures and symptoms, non-amatory status and associated complications. The patient and family member wish to proceed with surgical intervention at this time and informed consent was obtained. Antibiotics operations support professionals the OR Hold anticoagulation N.p.o. Bedrest History of Present Illness Reason for Consultation: Syncope Attending Physician: Jose C Adame History of Present Illness I saw and examined the patient in her room prior to transport to the OR. Her daughter was present during the interview. Her and her daughter both agree that she has had 3 episodes of nabil syncope over the last several months, the first 2 did not result in injury however the episode prompting this admission resulted in a fall on a cement patio and resulted in a hip fracture for which she now needs surgery. The 3 episodes are similar both by the patient's description and her daughter, who witnessed 1 of them. The one that her daughter witnessed occurred in the house, she apparently was walking and then just suddenly without warning collapsed to the floor. She regained consciousness fairly quickly, there is no seizure-like activity and she had no recollection of how she came. Tripping did not seem to be a cause. The other ones were not witnessed, however the patient reports the same sensation that she suddenly wakes up on the ground with no recollection of how she got there. She has no other sensation, she specifically has no palpitations around the time of these events (however she does notably have palpitations at other times where she feel her heart beat rapidly for brief periods of time but has no hemodynamic symptoms from it). She also has no chest discomfort. She has had no change in her exercise ability and no orthopnea or PND or peripheral edema. She has been observed to have progressive QRS widening with an IVCD pattern in the past which has now progressed to a left bundle branch block pattern. She does live near the [facility] but I do not believe has been tested for Lyme disease. She does not have symptoms of it however. Allergies Allergy/AdvReac Type Severity Reaction Status Date / Time No Known Allergies Allergy Unverified 03/15/18 14:35 Home Medications Home Medications Medication Instructions Recorded Confirmed Type ascorbate calcium-bioflavonoid 1 tab PO DAILY 03/12/18 03/12/18 History [Maribel-C with Bioflavonoids] calcium carbonate 600 mg PO BID 03/12/18 03/12/18 History citalopram 40 mg PO DAILY 03/12/18 03/12/18 History cranberry extract 250 mg PO DAILY 03/12/18 03/12/18 History ezetimibe [Zetia] 10 mg PO DAILY 03/12/18 03/12/18 History fluticasone propion-salmeterol 1 inh INHALATION BID 03/12/18 03/12/18 History [Advair Diskus] metoprolol tartrate 12.5 mg PO BID 03/12/18 03/12/18 History montelukast [Singulair] 10 mg PO PM 03/12/18 03/12/18 History multivitamin 1 tab PO DAILY 03/12/18 03/12/18 History omega 9-yxq-nbg-fish oil [Fish Oil] 2 cap PO DAILY 03/12/18 03/12/18 History simvastatin [Zocor] 40 mg PO HS 03/12/18 03/12/18 History aspirin [Ecotrin Low Strength] 81 mg PO QAM #30 tab 03/21/18 Rx garlic 500 mg PO DAILY 03/21/19 03/21/19 History losartan 100 mg PO QAM 03/21/19 03/21/19 History methotrexate sodium 10 mg PO WK 03/21/19 03/21/19 History Patient History Medical History COPD (chronic obstructive pulmonary disease) LBBB (left bundle branch block) Rheumatoid arthritis Depression Atrial fibrillation Anemia Tricuspid regurgitation (Chronic) Mitral regurgitation (Chronic) Pulmonary hypertension (Chronic) Hypertension (Chronic) Atrial fibrillation Hx: UTI (urinary tract infection) Surgical History Hx of lumbosacral spine surgery 03/15/2018. Epidural abscess. GETA. No issues. Family History Other Family history non-contributory Social History Preferred Language: [place] Citizen Communication Ability: Effective Visual Impairment: Limited Blender Required: No Beliefs That Will Affect Care: Anabaptist Anabaptist Beliefs: anabaptist Current Living Situation: Family Other Information That Helps Us Care for You: No Feels Safe at Home: Yes Safety Concerns: Feels Safe At This Time Smoking Status: Current every day smoker Do You Dip or Chew Tobacco: No ; Second Hand Exposure: No ; Hx Alcohol Use: No Hx Substance Use: No Review of Systems Review of Systems: All systems reviewed & are unremarkable except as noted in HPI & below Physical Exam Physical Exam: Constitutional: Alert, cooperative and in no distress. HEENT: Unremarkable Neck: No jugular venous distention, carotid pulses are normal and equal bilaterally without bruits. Pulmonary: Clear to auscultation bilaterally. Cardiac: Regular rhythm with no murmur, gallop or rub. Abdomen: Soft, nontender with normal bowel sounds. Extremities: No edema. Distal pulses intact. Neurologic: No focal findings. Gait was not tested. Skin: No rash, ecchymoses or petechiae. Results & Data Vital Signs (Past 12 Hours) Vital Signs Temp Pulse Pulse Pulse Resp BP Pulse Ox 03/22/19 15:42 68 03/22/19 14:38 37.2 C 67 18 168/79 H 95 03/22/19 14:12 37.2 C 66 18 154/73 H 95 03/22/19 07:59 72 03/22/19 07:12 36.5 C 75 19 156/71 H 94 03/22/19 04:20 36.9 C 72 20 149/57 H 96 Diagnostic Findings Electrocardiogram: On presentation March 21, 2019 at 2212 she is in sinus rhythm at 81 bpm, the AL interval is normal and she has a left bundle branch block pattern with a QRS duration 136 ms. Telemetry: Sinus rhythm, no significant ectopy, no AV block or bradycardia PG Care Time/CCT Total # of Minutes Spent Total Time Spent with Patient: Total time spent is greater than 50% in coordination of care (as documented) at patient's floor/unit and/or counseling patient:
[2019-03-22] MEDS ORDERED: SUCCINYLCHOLINE 100MG/5ML SYR ONE (17:05)
[2019-03-22 17:23] LABS: Lyme Ab IgG w/WB Rflx Negative (Negative); Lyme Ab IgM w/WB Rflx Negative (Negative)
--- NOTE | 2019-03-22 17:30 | Post Operative Brief Note ---
Immediate Post Op Note v1 Date of Surgery March 22, 2019 Pre & Post Diagnosis Operation Date: 03/22/19 11:30 Pre-Op Diagnosis: Left hip fracture Post-Op Diagnosis: Left hip fracture Operation Date: 03/23/19 11:00 <No data on this case meets the specified criteria> I identified the patient and participated in the time-out.: Yes Procedure Operation Date: 03/22/19 11:30 Actual Procedures p Left Bipolar Hip(Left) - Hima Rice DO Operation Date: 03/23/19 11:00 <No data on this case meets the specified criteria> Surgeon Hima Rice DO Spindle Carver Sunil Castellanos Estimated Blood Loss 85 Findings Consistent with Post-Op Diagnosis Fluids 1000 cc LR Specimens femoral head Drains Funez Catheter (in place from inpatient room, clear yellow urine noted. Anesthesia to monitor urine output during surgery) Anesthesia Type General Complications none Disposition Disposition: Recovery Room Overlapping Procedure I was present for: the critical portions of procedure. I was immediately available: during the entire case. Back up surgeon: was not required during procedure.
--- NOTE | 2019-03-22 17:37 | Operative Report ---
Post Operative Report Pre & Post Diagnosis Operation Date: 03/22/19 11:30 Pre-Op Diagnosis: Left hip fracture Post-Op Diagnosis: Left hip fracture Operation Date: 03/23/19 11:00 <No data on this case meets the specified criteria> I identified the patient and participated in the time-out.: Yes Procedure Operation Date: 03/22/19 11:30 Actual Procedures p Left Bipolar Hip(Left) - Hima Rice DO Operation Date: 03/23/19 11:00 <No data on this case meets the specified criteria> Surgeon Hima Rice DO Microbiology Lab Assistant Sunil Castellanos Estimated Blood Loss 85 Findings Consistent with Post-Op Diagnosis Fluids 1000 cc LR Specimens Femoral head Anesthesia Type General Complications none Disposition Disposition: Recovery Room Indications The patient is a 79-year-old female with displaced left femoral neck fracture sustained after a fall from standing height. The patient was medically stabilized on 03/22/2019. I indicated the patient for left hip hemiarthroplasty. The patient and daughter were informed of the risks and benefits of surgery, which include but not limited to infection, bleeding, blood clots, damage to nerves, vessels, bone and soft tissue, dislocation, leg length discrepancy, need for additional surgery and . The patient and daughter collectively chose to move forward with surgical intervention and informed consent was obtained. Description of Procedure Following induction of adequate general anesthesia, the patient was transferred to the OR table and placed in the lateral decubitus position with right hip down. The left hip was prepped and draped in usual sterile manner. A posterior incision was made. Subcutaneous tissue was sharply dissected. Electro cautery was used for hemostasis. Fascia was incised throughout the length of the wound and the piriformis was identified. A #1 Vicryl suture was used to tage the piriformis. The short external rotators were divided from the posterior aspect of the femur and a capsulotomy was performed. A second #1 Vicryl suture was used to tag the capsule. Next, I turned my attention to the femoral neck fracture. The fracture was relatively high on the calcar and decision was made to proceed with the oscillating saw and create the calcar osteotomy. This bone fragment was removed. Following this, tenaculum and cob elevater was utilized to remove the femoral head. The head was measured on the back table and the 44 mm femoral head was chosen as the size to be used. Next, attention was turned to the acetabulum which was found to have no significant arthritis. All bony debris was removed. A sponge was placed in the acetabulum. Attention was then turned to the proximal femur where box osteotome was used to gain access to the femoral canal. A canal finder and power lateralizing reamer were utilized to further open. Sequential raspings were taken up to a size 11, which was sunk completely and trial reduction was carried out and a 28+0 mm femoral head was chosen the size to be used with the 44 bipolar cup. Following a trial reduction, the hip was found to be stable to 45 degrees of internal rotation and 90 degrees of flexion with equal leg lengths. The calcar reamer was utilized to smooth the calcar and the instruments and trial components were removed. The hip was thoroughly irrigated with pulsatile irrigation. The canal was irrigated and dried, cement restrictor was placed and [place] cement was mixed. The size 11 low demand fracture stem was placed with a 9 mm centralizer and this was held in position well. All excess cement was removed untill cement hardened. Following insertion of final stem component another trial reduction was carried out and again a +0 neck size was chosen as the size to be used. The final head and neck was impacted into position and the hip was reduced and stability assess and was found to be stable to 45 degrees of internal rotation and 90 degrees of flexion. The wound was again irrigated. [place]-incisional soft tissue was injected with the [place] [employer]ix which includes a combination of Ropivicaine 0.5% 150mg, Bupivicaine 0.5%/Epinephrine 1:200,000 30ml, Toradol 30mg, Dexamethasone 4mg, Ketamine 10mg, Clonidine 100mcg and NSS 30ml solution, 70 cc in total. The capsule was repaired using #5 fiberwire sutures through drill holes. Following this, the short external rotators were reapproximated to the posterior aspect of the femur also through drill holes and these were tied. Once again the wound was copiously irrigated with sterile saline solution with bacitracin. Fascia was closed using #1 Vicryl [id number] sutures, subcutaneous tissue was closed using 2-0 vicryl, and skin was closed with lucien. Sterile dressings, Deloris incisional VAC were applied and abduction pillow placed between the legs. The patient tolerated the procedure well and was taken to recovery room in stable condition. Due to the complex nature of the procedure, the entire surgery was performed with the operational assistance of Sunil Castellanos PA-C. The occupational therapist assistant, under direct supervision, was involved in the actual performance of all aspects of the surgical procedure including patient positioning, hemostasis, tissue retraction, instrument management and wound closure. I attest to the content of the Intraoperative Record and any orders documented therein. Any exceptions are noted below.
--- NOTE | 2019-03-22 17:59 | Orthopedic Progress Note ---
Date of Service March 22, 2019 Assessment & Plan (1) Hip fracture, left: Status post left hip hemiarthroplasty -Ancef x24 -DVT prophylaxis SCDs, teds, begin Lovenox 30 mg subcu daily, patient to have pacemaker placed on 03/23/2019, begin Lovenox when safe per cardiology team. -PT/OT -Posterior hip precaution -Weight-bear as tolerates left lower extremity -Postoperative x-ray pending -A.m. lab Subjective Post Operative Progress Note Patient seen in PACU, comfortable, denies complaints, pain well controlled, no acute issues. Review of Systems Review of Systems: All systems reviewed & are unremarkable except as noted in HPI & below Constitutional: as per Subjective / HPI Physical Exam Physical Exam: LLE NVSI +EHL/FHL/TA/GS SILT grossly, +2 DP pulse, compartments soft NT, dressing cdi. Constitutional: WD/WN, vitals as above Results & Data Vital Signs (Past 12 Hours) Vital Signs Temp Pulse Pulse Pulse Resp BP Pulse Ox 03/22/19 15:42 68 03/22/19 14:38 37.2 C 67 18 168/79 H 95 03/22/19 14:12 37.2 C 66 18 154/73 H 95 03/22/19 07:59 72 03/22/19 07:12 36.5 C 75 19 156/71 H 94
--- NOTE | 2019-03-22 18:12 | XRay Report ---
XR hip LT min 2V CLINICAL HISTORY: Post-Operative implant position COMPARISON: Left femur radiographs performed earlier today. FINDINGS: Alignment of the left hip arthroplasty is anatomic. No periprosthetic fracture or unexpect ed radiopaque foreign bodies are noted. There are skin lucien. IMPRESSION: Expected findings following total left hip arthroplasty. Electronically signed by: Tomas Barth M.D. 03/22/2019 6:11 PM
[2019-03-22] MEDS ORDERED: NALOXONE HCL 0.4 MG/1 ML VIAL/CARP IV PRN (18:42)
--- NOTE | 2019-03-22 19:01 | Anesthesiology Progress Note ---
Date of Service March 22, 2019 Anesthesia Post Procedure Vital Signs Vital Signs: Temp Pulse Pulse Pulse Resp BP Pulse Ox 03/22/19 18:25 36.5 C 73 21 162/71 H 100 03/22/19 18:15 75 19 173/70 H 100 03/22/19 18:05 79 21 175/79 H 100 03/22/19 17:55 78 17 186/80 H 100 03/22/19 17:48 36.8 C 85 19 194/78 H 100 03/22/19 15:42 68 03/22/19 14:38 37.2 C 67 18 168/79 H 95 03/22/19 14:12 37.2 C 66 18 154/73 H 95 03/22/19 07:59 72 03/22/19 07:12 36.5 C 75 19 156/71 H 94 03/22/19 04:20 36.9 C 72 20 149/57 H 96 03/21/19 23:03 37.4 C 98 H 18 184/82 H 96 03/21/19 20:30 36.5 C 97 H 18 216/97 H 96 Pain Intensity Left Hip: Pain Intensity: 8 Transfer of Care Handoff Completed per policy Notes Mental Status: alert / awake / arousable and participated in evaluation Patient Amnestic to Procedure: Yes Nausea / Vomiting: adequately controlled Pain: adequately controlled Airway Patency, RR, SpO2: stable & adequate BP & HR: stable & adequate Hydration State: stable & adequate Anesthetic Complications: no major complications apparent
[2019-03-22] MEDS: MONTELUKAST SODIUM 10 MG TABLET PO SCH (21:42)
[2019-03-22] MEDS: SIMVASTATIN 40 MG TAB PO SCH (21:44)
[2019-03-23] MEDS: CEFAZOLIN 1000MG 1,000 MG/7.5 ML SYR IV SCH ×2 (00:40→08:22)
[2019-03-23 06:34] LABS: Hematocrit (blood only) 34.7 % (37-47); Hemoglobin 11.3 g/dL (12.0-16.0); Immature Granulocytes # (auto) 0.02 K/uL (0.00-0.02); Immature Granulocytes % (auto) 0.2 %; Lymphocytes # (auto) 0.95 K/uL (1.2-3.4); Lymphocytes % (auto) 10.3 %; Mean Corpuscular Hemoglobin 32.5 pg (25-34); Mean Corpuscular Hgb Conc 32.6 g/dL (32-36); Mean Corpuscular Volume 99.7 fL (80-100); Mean Platelet Volume 10.7 fL (7.4-10.4); Monocytes # (auto) 0.82 K/uL (0.11-0.59); Monocytes % (auto) 8.9 %; Neutrophils % (auto) 80.6 %; Platelet Count 162 K/uL (130-400); RDW Coefficient of Variation 15.3 % (11.5-14.5); RDW Standard Deviation 55.6 fL (36.4-46.3); Red Blood Count 3.48 M/uL (4.2-5.4); White Blood Count 9.19 K/uL (4.8-10.8)
--- NOTE | 2019-03-23 08:05 | Orthopedic Progress Note ---
Date of Service March 23, 2019 Assessment & Plan (1) Hip fracture, left: Postop day 1 status post left bipolar hemiarthroplasty. PT and OT protocols as able. Weightbearing as tolerated. Continue abduction pillow while in bed. Anticoagulants held in lieu of possible pending pacemaker insertion Continue SCDs and ROGER hose Pain management as written DC planning-pending physical therapy progress, patient may need rehab facility prior to returning to home. Subjective Patient currently lying in bed. Awake and alert. Pleasantly confused. Nursing staff present and patient asking the nursing staff to "help her get out of here". Otherwise pleasant. Denies hip pain at rest but states that she does have some hip pain with motion. No other complaints. Physical Exam Physical Exam: Prevena dressing clean, dry, and intact. Appears to be functioning. Minimal thigh swelling. Calves are soft and nontender. Neurovascular intact. Toes are mobile. Leg lengths appear equal. Results & Data Vital Signs (Past 12 Hours) Vital Signs Temp Pulse Resp BP Pulse Ox 03/23/19 07:52 36.5 C 65 21 116/57 L 100 03/23/19 04:08 36.5 C 60 32 H 116/57 L 100 03/22/19 23:13 36.6 C 60 17 111/60 100 Laboratory Results Laboratory Results WBC 9.19 K/uL (4.8-10.8) 03/23/19 06:05 RBC 3.48 M/uL (4.2-5.4) L 03/23/19 06:05 Hgb 11.3 g/dL (12.0-16.0) L 03/23/19 06:05 Hct 34.7 % (37-47) L 03/23/19 06:05 MCV 99.7 fL (80-100) 03/23/19 06:05 MCH 32.5 pg (25-34) 03/23/19 06:05 MCHC 32.6 g/dL (32-36) 03/23/19 06:05 RDW Std Deviation 55.6 fL (36.4-46.3) H 03/23/19 06:05 RDW Coeff of Giuliana 15.3 % (11.5-14.5) H 03/23/19 06:05 Plt Count 162 K/uL (130-400) 03/23/19 06:05 MPV 10.7 fL (7.4-10.4) H 03/23/19 06:05 Immature Gran % (Auto) 0.2 % 03/23/19 06:05 Neut % (Auto) 80.6 % 03/23/19 06:05 Lymph % (Auto) 10.3 % 03/23/19 06:05 [place] % (Auto) 8.9 % 03/23/19 06:05 Eos % (Auto) 0.0 % 03/23/19 06:05 Baso % (Auto) 0.0 % 03/23/19 06:05 Immature Gran # (Auto) 0.02 K/uL (0.00-0.02) 03/23/19 06:05 Neut # (Auto) 7.40 K/uL (1.4-6.5) H 03/23/19 06:05 Lymph # (Auto) 0.95 K/uL (1.2-3.4) L 03/23/19 06:05 [place] # (Auto) 0.82 K/uL (0.11-0.59) H 03/23/19 06:05 Eos # (Auto) 0.00 K/uL (0-0.5) 03/23/19 06:05 Baso # (Auto) 0.00 K/uL (0-0.2) 03/23/19 06:05 PT 10.8 Seconds (9.0-12.0) 03/21/19 21:33 INR 1.1 (0.9-1.1) 03/21/19 21:33 APTT 25.5 Seconds (21.0-31.0) 03/21/19 21:33 PTT Ratio 0.9 03/21/19 21:33 Sodium 140 mmol/L (136-145) 03/22/19 06:05 Potassium 4.0 mmol/L (3.5-5.1) D 03/22/19 06:05 Chloride 110 mmol/L (98-107) H 03/22/19 06:05 Carbon Dioxide 25 mmol/L (21-32) 03/22/19 06:05 Anion Gap 6.0 (3-11) 03/22/19 06:05 BUN 12 mg/dl (7-18) 03/22/19 06:05 Creatinine 0.81 mg/dl (0.6-1.2) 03/22/19 06:05 Est Cr Clr Drug Dosing 42.9 ml/min 03/22/19 06:05 Est GFR ( Amer) 80.1 03/22/19 06:05 Est GFR (Non-Af Amer) 69.1 03/22/19 06:05 BUN/Creatinine Ratio 14.5 (10-20) 03/22/19 06:05 Glucose 102 mg/dl (70-99) H 03/22/19 06:05 Calcium 8.7 mg/dl (8.5-10.1) 03/22/19 06:05 Total Bilirubin 1.0 mg/dl (0.2-1) 03/22/19 06:05 AST 26 U/L (15-37) 03/22/19 06:05 ALT 21 U/L (12-78) 03/22/19 06:05 Alkaline Phosphatase 66 U/L (45-117) 03/22/19 06:05 NT-Pro-B Natriuret Pep 2822 pg/ml (0-1800) H 03/21/19 21:33 Total Protein 6.1 gm/dl (6.4-8.2) L 03/22/19 06:05 Albumin 3.1 gm/dl (3.4-5.0) L 03/22/19 06:05 Globulin 3.0 gm/dl (2.5-4.0) 03/22/19 06:05 Albumin/Globulin Ratio 1.0 (0.9-2) 03/22/19 06:05 25-OH Vitamin D Total 32.8 ng/ml (30-100) 03/23/19 06:33 Lyme Disease IgG Ab Negative (Negative) 03/22/19 14:48 Lyme Disease IgM Ab Negative (Negative) 03/22/19 14:48 Blood Type O Positive 03/22/19 14:44 Antibody Screen NEGATIVE 03/22/19 14:44 (1) Hip fracture, left Encounter type: subsequent encounter Fracture type: closed Fracture healing: with routine healing Qualified Code(s): S72.002D - Fracture of unspecified part of neck of left femur, subsequent encounter for closed fracture with routine healing
[2019-03-23] MEDS: FLUTICASONE/SALMETEROL 250/50 (ADVAIR) 14 PUFF/1 INHALER INH SCH ×2 (08:22→21:28)
[2019-03-23] MEDS: ACETAMINOPHEN 325 MG TAB PO PRN ×3 (08:22→21:27)
[2019-03-23] MEDS: METOPROLOL TARTRATE 25 MG TAB PO SCH ×2 (08:23→21:27)
[2019-03-23] MEDS: MULTIVITAMIN TAB PO SCH (08:23)
[2019-03-23] MEDS: CALCIUM CARBONATE 1250MG TAB PO SCH ×2 (08:25→21:29)
[2019-03-23] MEDS: FOLIC ACID 1 MG TAB PO SCH (08:25)
[2019-03-23] MEDS: DOCUSATE SODIUM/SENNA 50/8.6MG TAB PO SCH (08:25)
[2019-03-23] MEDS: CHOLECALCIFEROL 1,000 UNITS TAB PO SCH (08:25)
[2019-03-23] MEDS: OLMESARTAN MEDOXOMIL 20 MG TAB PO SCH (08:25)
[2019-03-23] MEDS: CITALOPRAM 40 MG TAB PO SCH (08:25)
[2019-03-23] MEDS: EZETIMIBE 10 MG TABLET PO SCH (08:26)
[2019-03-23] MEDS: OMEGA-3 (PURIFIED FISH OIL) 1 GM CAP PO SCH (08:26)
[2019-03-23] MEDS: POTASSIUM CHLORIDE 10 MEQ TABCR PO SCH (08:26)
[2019-03-23] MEDS: NYSTATIN SUSP 500,000 U/5 ML UDC PO SCH ×4 (08:26→21:28)
--- NOTE | 2019-03-23 08:34 | Cardiology Progress Note ---
Date of Service March 23, 2019 Assessment & Plan (1) Syncope: She presents with her third sudden syncopal event, all without prodrome and all brief. On this occasion she fell on cement and broke her hip. Given her left bundle branch block and the sudden brief nature of these events the m ost likely etiology is cardiac, most likely transient bradycardia. Tachycardia is possible, she does have a history of palpitations but not associated with hemodynamic symptoms and she did not have palpitations associated with these events. We do need to try to either find out why she has these events (which would require loop recorder) or we can treat the most likely cause of the event, which would be bradycardia, which would require a pacemaker. Coincidently her sister had a similar sequence of events and now has a pacemaker after having a loop recorder in place. Her and her daughter are leaning toward this option. I discussed the indications, procedure, risks and alternatives of pacemaker implantation with her today, I had discussed it yesterday with her daughter present. She is in agreement, consent obtained. I also discussed conscious sedation with her and she is agreeable. Consent obtained. We will plan pacemaker implantation this morning. 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 This suggests progressive disease. Her Lyme titer was negative. I suspect the most likely cause of her syncope was heart block, the only way to prove it would be to monitor for causes, but that would require her to have another episode of syncope which I think is dangerous. We will plan a pacemaker instead. 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 That was associated with palpitations and she has not had hemodynamic symptoms when she had the tachycardia. I doubt this is a cause of her syncopal events. Subjective She seems to be doing well following her hip surgery yesterday. She has some discomfort and is resting in bed. She has had no lightheadedness or dizziness. Physical Exam Physical Exam: Constitutional: Alert, cooperative and in no distress. Pulmonary: Clear to auscultation bilaterally. Cardiac: Regular rhythm with no murmur, gallop or rub. Abdomen: Soft, nontender with normal bowel sounds. Extremities: No edema. Skin: No rash, ecchymoses or petechiae. Results & Data Vital Signs (Past 12 Hours) Vital Signs Temp Pulse Resp BP Pulse Ox 03/23/19 07:52 36.5 C 65 21 116/57 L 100 03/23/19 04:08 36.5 C 60 32 H 116/57 L 100 03/22/19 23:13 36.6 C 60 17 111/60 100 Diagnostic Findings Echocardiogram yesterday: Normal left ventricular systolic function, left ventricular hypertrophy, similar to prior Telemetry: Sinus rhythm, no AV block. PG Care Time/CCT Total # of Minutes Spent Total Time Spent with Patient: Total time spent is greater than 50% in coordination of care (as documented) at patient's floor/unit and/or counseling patient: (1) Syncope Syncope type: unspecified Qualified Code(s): R55 - Syncope and collapse
[2019-03-23] MEDS ORDERED: BACITRACIN INJ 50,000 UNIT VIAL ONE (11:56)
[2019-03-23] MEDS ORDERED: LIDOCAINE HCL 1% 20 ML VIAL ONE (11:56)
[2019-03-23] MEDS ORDERED: MIDAZOLAM HCL 5 MG/ML 1 ML VIAL ONE (12:24)
[2019-03-23] MEDS ORDERED: CEFAZOLIN 250 MG/ML 1 GM VIAL ONE (12:25)
[2019-03-23] MEDS ORDERED: fentaNYL citrate 100 MCG/2 ML VIAL ONE (12:25)
[2019-03-23] MEDS ORDERED: BACITRACIN OINT 0.9 GM PKT ONE (14:26)
--- NOTE | 2019-03-23 14:35 | Pre Anesthesia Assessment ---
Date of Service March 23, 2019 Pre Sedation Assessment Vital Signs Temp Pulse Pulse Pulse Resp BP BP 03/23/19 12:13 110/54 L 03/23/19 12:07 16 89/47 L 03/23/19 08:39 03/23/19 07:52 36.5 C 65 21 116/57 L 03/23/19 04:08 36.5 C 60 32 H 116/57 L 03/22/19 23:13 36.6 C 60 17 111/60 03/22/19 19:02 36.6 C 72 16 154/73 H 03/22/19 18:25 36.5 C 73 21 162/71 H 03/22/19 18:15 75 19 173/70 H 03/22/19 18:05 79 21 175/79 H 03/22/19 17:55 78 17 186/80 H 03/22/19 17:48 36.8 C 85 19 194/78 H 03/22/19 15:42 68 03/22/19 14:38 37.2 C 67 18 168/79 H Pulse Ox 03/23/19 12:13 03/23/19 12:07 97 03/23/19 08:39 95 03/23/19 07:52 100 03/23/19 04:08 100 03/22/19 23:13 100 03/22/19 19:02 100 03/22/19 18:25 100 03/22/19 18:15 100 03/22/19 18:05 100 03/22/19 17:55 100 03/22/19 17:48 100 03/22/19 15:42 03/22/19 14:38 95 Cardiovascular RRR, no murmur, no edema Respiratory normal respiratory effort, lungs clear to auscultation Pre-Sedation Airway Assessment Smoking Status: Current every day smoker Hx Sleep Apnea: No Short, Thick Neck: No Thyromental Distance: > or= 3.5 Finger Breadths Oral Cavity: + WNL Mallampati Class: III ASA: ASA4 NPO Status Date of Last Intake of Fluids: 03/23/19 Time of Last Intake of Fluids: 08:00 Last Oral Intake of Fluids Comment: sip with meds Date of Last Intake of Solid Food: 03/23/19 Time of Last Intake of Solid Foods: 19:00 Procedure Planning Contraindications for Sedation: none Current Medications Reviewed: Yes Notes The planned sedation has been discussed with the patient. Informed Consent was obtained. I have identified the patient, determined the appropriateness of sedation and have assessed the patient immediately prior to the procedure. All medicine(s) and interventions are by my order.
[2019-03-23] MEDS ORDERED: KETOROLAC TROMETHAMINE 10 MG TABLET PO PRN (14:45)
[2019-03-23] MEDS ORDERED: ACETAMINOPHEN 325 MG TAB PO PRN (14:45)
--- NOTE | 2019-03-23 14:45 | Operative Report ---
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, syncope Postoperative diagnosis: Same I identified the patient and participated in the time-out.: Yes Procedure Operation Date: 03/23/19 11:00 Actual Procedures p Pacer with A/V Leads (Dual) - Naveen Maldonado MD s Venogram, Unilateral - Naveen Maldonado MD Surgeon Naveen Maldonado MD Emergency Room Specialist None Estimated Blood Loss 20 Findings Consistent with Post-Op Diagnosis Good lead position with the ventricular lead on the high intraventricular septum Specimens None Anesthesia Type Local Complications none Disposition Accompanied Patient To Recovery: No Disposition: PCU Description of Procedure After obtaining informed consent for the procedure, the patient was brought to the laboratory and prepped and draped in the standard sterile manner. The left prepectoral region was anesthetized with 1% lidocaine local anesthetic and dye was injected the left arm IV site to opacify the left subclavian vein. The subclavian vein was identified and found to be free of obstruction. Left axillary venipuncture was performed by percutaneous technique and a guidewire placed through the left subclavian vein into the superior vena cava. The area was further infiltrated with 1% lidocaine local anesthetic and a 5 cm incision was made parallel to the left clavicle and 2 cm below it and carried down to the anterior pectoralis fascia. A pacemaker pocket was formed by blunt dissection anterior to the pectoralis fascia and a bacitracin-soaked sponge (50,000 units in 50 cc normal saline solution) was placed in the pocket. An 8 [place] Medtronic lead introducer was placed over the guidewire into the left subclavian vein, the dilator and guidewire were removed and a septal sheath was placed through the introducer and using a guidewire was advanced into the right ventricle and positioned in the upper part of the interventricular septum. A bipolar active fixation steroid tipped fixed tip septal lead was advanced through the introducer into a high septal position and the lead rotated to fix the lead in position. Pacing and sensing thresholds were evaluated in bipolar configuration and are recorded on the implant data sheet. The septal sheath was then removed from the lead. A guidewire was placed through the 8 [place] introducer and a bipolar active fixation steroid tipped atrial lead was advanced through the introducer into the superior vena cava. The introducer was stripped from the lead and guidewire. Using a curved stylette the atrial lead was positioned in the region of the at rial appendage and the screw extended fixing the lead in position. Pacing and sensing thresholds were evaluated in bipolar configuration and are recorded on the implant data sheet. Once the leads were in position they were attached to the anterior pectoralis fascia using 2 sutures of 2-0 silk around each lead collar. The bacitracin- soaked sponge was removed from the pocket, hemostasis was obtained, the pacemaker was attached to the leads and placed in the pocket with the leads coiled beneath it. The incision was closed with a running double subcutaneous closure of 3-0 Vicryl absorbable suture, followed by running subcuticular skin closure of 4-0 Vicryl absorbable suture. Bacitracin ointment was placed on the incision and a pressure dressing applied. I attest to the content of the Intraoperative Record and any orders documented therein. Any exceptions are noted below.
--- NOTE | 2019-03-23 15:36 | Hospitalist Progress Note ---
Date of Service March 23, 2019 Assessment & Plan (1) Hip fracture, left: POD #1 s/p ORIF. Osteoporotic fracture. vitamin D level wnl. Defer DVT proph selection to orthopedics. Chemical means was deferred today due to pacemaker insertion. Will order lovenox daily starting in am. PT, OT. rehab referral. Appreciate orthopedics assistance. (2) Syncope: Etiology uncertain but lack of prodromal symptoms highly suspicious for arrhythmia (bradycardia, pauses, etc). Dr Maldonado saw in consult. Loop recorder implantation was considered to try and capture the electrical cause of these events; however it was felt that it would likely be safer for the patient to undergo pacemaker placement. Thus, s/p pacemaker placement today. Tolerated well. CXR in am to r/o pneumothorax. Appreciate Dr Maldonado's assistance. (3) LBBB (left bundle branch block): had incomplete LBBB in 2018; now has LBBB. doubt underlying CAD as cause. echo with normal LV function and normal wall motion. LBBB may be on basis of electrical axis deterioration/conduction disease. (4) Dyslipidemia: Continue with Zetia 10 mg p.o. daily, continue simvastatin 40 mg p.o. nightly, continue fish oil 2 caps p.o. daily (5) Hypokalemia: Replenished and improved (6) Hypertension: Continue metoprolol 12.5 mg p.o. twice daily but hold ARB due to low- normal BPs (7) Atrial fibrillation: h/o PAF. is not on chronic anticoagulation. see discussion above in "syncope." cont BB. (8) Depression: Continue citalopram 40 mg p.o. daily (9) Rheumatoid arthritis: Continue methotrexate 10 mg p.o. weekly. need to ask when patient takes such. no flare at this time. (10) COPD (chronic obstructive pulmonary disease): cont advair cont albuterol prn no exacerbation at this time chronic TURNER is likely due to COPD (and perhaps pulmonary HTN) (11) Pulmonary hypertension: could be due to COPD likely contributing to TURNER (12) Chronic kidney disease, stage 3a: baseline CrCl 40s/50s bmp am for stability due to low-normal Bps and sluggish UOP will give NS bolus 500cc x 1 following by 75cc/hr of NS for additional liter keep miller in place tonight likely d/c tomorrow on Saturday (13) Candidiasis of mouth and esophagus: improved likely due to chronic advair use nystatin 5cc qid (14) DVT prophylaxis: start lovenox 40mg once daily in AM dispo planning - good candidate for inpatient rehab ([facility]) as patient was living independently and performing all ADLs prior to admission; could tolerate 3 hours of Rx each day daughter updated at bedside Subjective patient c/o minimal pain over left hip. she DID ambulate today with PT and did ok. she underwent pacemaker placement today by Dr Maldonado w/o incident. UOP has been poor since the am. tele normal overnight. no dyspnea no orthopnea no abdominal pain not passing flatus Review of Systems Constitutional: no fever, no chills, no fatigue and no anorexia Respiratory: no cough and no dyspnea Cardiovascular: no chest pain Gastrointestinal: no abdominal pain, no nausea and no vomiting Physical Exam Constitutional: + thin; no acute distress and no altered mental status ENMT: Mouth: + dry oral mucous membranes Respiratory: normal respiratory effort, lungs clear to auscultation Cardiovascular: Rate/Rhythm: regular rate and regular rhythm Heart Sounds: normal S1 and normal S2; no murmur Vessels: posterior tibial pulses present and dorsalis pedis pulses present; no JVD Extremities: no edema Gastrointestinal (Abdomen): normal bowel sounds, soft, nontender, no hepatosplenomegaly Skin: pacer site, left upper chest, clean. left hip wound vac in place. Psychiatric: A+Ox3, euthymic affect Results & Data Vital Signs (Past 12 Hours) Vital Signs Temp Pulse Resp BP BP Pulse Ox 03/23/19 15:15 82 18 104/55 L 94 03/23/19 15:00 36.4 C L 82 18 116/58 L 94 03/23/19 12:13 110/54 L 03/23/19 12:07 16 89/47 L 97 03/23/19 08:39 95 03/23/19 07:52 36.5 C 65 21 116/57 L 100 03/23/19 04:08 36.5 C 60 32 H 116/57 L 100 Laboratory Results Laboratory Results - last 24 hr 03/23/19 03/23/19 06:05 06:33 WBC 9.19 RBC 3.48 L Hgb 11.3 L Hct 34.7 L MCV 99.7 MCH 32.5 MCHC 32.6 RDW Std Deviation 55.6 H RDW Coeff of Giuliana 15.3 H Plt Count 162 MPV 10.7 H Immature Gran % (Auto) 0.2 Neut % (Auto) 80.6 Lymph % (Auto) 10.3 [place] % (Auto) 8.9 Eos % (Auto) 0.0 Baso % (Auto) 0.0 Immature Gran # (Auto) 0.02 Neut # (Auto) 7.40 H Lymph # (Auto) 0.95 L [place] # (Auto) 0.82 H Eos # (Auto) 0.00 Baso # (Auto) 0.00 25-OH Vitamin D Total 32.8 PG Care Time/CCT Total # of Minutes Spent Total Time Spent with Patient: Total time spent is greater than 50% in coordination of care (as documented) at patient's floor/unit and/or counseling patient: (1) Rheumatoid arthritis Rheumatoid arthritis location: multiple sites Rheumatoid factor presence: unspecified presence Qualified Code(s): M06.9 - Rheumatoid arthritis, unspecified (2) Atrial fibrillation Atrial fibrillation type: paroxysmal Qualified Code(s): I48.0 - Paroxysmal atrial fibrillation (3) Depression Depression Type: other depression Qualified Code(s): F32.89 - Other specified depressive episodes (4) Syncope Syncope type: unspecified Qualified Code(s): R55 - Syncope and collapse (5) COPD (chronic obstructive pulmonary disease) COPD type: unspecified COPD Qualified Code(s): J44.9 - Chronic obstructive pulmonary disease, unspecified (6) Hip fracture, left Encounter type: subsequent encounter Fracture healing: with routine healing Fracture type: closed Qualified Code(s): S72.002D - Fracture of unspecified part of neck of left femur, subsequent encounter for closed fracture with routine healing (7) Hypertension Hypertension type: essential hypertension Qualified Code(s): I10 - Essential (primary) hypertension
[2019-03-23] MEDS ORDERED: SODIUM CHLORIDE 0.9% 1000ML 1,000 ML IV SCH (16:00)
--- NOTE | 2019-03-23 16:50 | Post Anesthesia Assessment ---
Date of Service March 23, 2019 Post Sedation Assessment Vital Signs Temp Pulse Resp BP BP Pulse Ox 03/23/19 16:30 78 18 101/48 L 95 03/23/19 16:00 87 16 100/54 L 95 03/23/19 15:30 88 18 107/51 L 96 03/23/19 15:15 82 18 104/55 L 94 03/23/19 15:00 36.4 C L 82 18 116/58 L 94 03/23/19 12:13 110/54 L 03/23/19 12:07 16 89/47 L 97 03/23/19 08:39 95 03/23/19 07:52 36.5 C 65 21 116/57 L 100 03/23/19 04:08 36.5 C 60 32 H 116/57 L 100 03/22/19 23:13 36.6 C 60 17 111/60 100 03/22/19 19:02 36.6 C 72 16 154/73 H 100 03/22/19 18:25 36.5 C 73 21 162/71 H 100 03/22/19 18:15 75 19 173/70 H 100 03/22/19 18:05 79 21 175/79 H 100 03/22/19 17:55 78 17 186/80 H 100 03/22/19 17:48 36.8 C 85 19 194/78 H 100 Recovery Score Activity: Moves 4 extremities Respiration: Deep Breath/Cough Circulation: +/-20% PreAnes Value Consciousness: Arouseable (by name) Oxygen Saturation: O2 needed for >90% Post Anesthesia Score: 8 Discharge Sedation Level of Care: Fast Track Phase II Post Sedation Plan On clinical assessment, the patient appears to have tolerated the sedation without complications. Patient is recovering as anticipated. Patient will continue to be monitored by nursing and may be discharged when sedation discharge criteria are met per below protocol. Upon Completions of procedure and additional 15 minutes continue every 5 minute vital signs and the P.A.R. score; then discharge to a Phase I or Fast Track to Phase II per the following guidelines: * Discharge Patient to appropriate Phase II area if PAR is 8 or greater or return to pre- procedure baseline. The post - procedure orders will be as directed. * If PAR score is less than 8 or not return to pre-procedure baseline then patient will follow Phase I monitoring till PAR is reached for Phase II. The Phase I may be done in procedure room or may call to secure a Phase I area. * If naloxone or flumazenil are used for reversal, hold in Phase I for continued monitoring from when last reversal dose was given for a minimum of 60 minutes or longer pending the nurse and/or physician discretion of patient condition before discharge to Phase II. Please call the Sedation Physician to re-evaluate and complete post-note for discharge to Phase II area. Do NOT discharge from procedure sedation or Phase 1 until post- sedation evaluation note is complete by procedure /sedation MD Sedation Discharge Instructions to be given to the patient at discharge to home.
[2019-03-23] MEDS ORDERED: SODIUM CHLORIDE 0.9% 1000ML 500 ML IV ONE (18:16)
[2019-03-23] MEDS: POLYETHYLENE (MIRALAX) 17 GM PACK PO SCH (21:28)
[2019-03-23] MEDS: SIMVASTATIN 40 MG TAB PO SCH (21:28)
[2019-03-23] MEDS: MONTELUKAST SODIUM 10 MG TABLET PO SCH (21:28)
[2019-03-24] MEDS: ACETAMINOPHEN 325 MG TAB PO PRN ×2 (00:57→16:33)
[2019-03-24 07:01] LABS: Basophils # (auto) 0.02 K/uL (0-0.2); Basophils % (auto) 0.2 %; Eosinophils # (auto) 0.27 K/uL (0-0.5); Eosinophils % (auto) 3.1 %; Hematocrit (blood only) 25.2 % (37-47); Hemoglobin 8.6 g/dL (12.0-16.0); Immature Granulocytes # (auto) 0.01 K/uL (0.00-0.02); Immature Granulocytes % (auto) 0.1 %; Lymphocytes # (auto) 2.27 K/uL (1.2-3.4); Lymphocytes % (auto) 26.1 %; Mean Corpuscular Hemoglobin 33.2 pg (25-34); Mean Corpuscular Hgb Conc 34.1 g/dL (32-36); Mean Corpuscular Volume 97.3 fL (80-100); Mean Platelet Volume 10.7 fL (7.4-10.4); Monocytes % (auto) 9.2 %; Neutrophils # (auto) 5.34 K/uL (1.4-6.5); Neutrophils % (auto) 61.3 %; Platelet Count 122 K/uL (130-400); RDW Coefficient of Variation 15.7 % (11.5-14.5); RDW Standard Deviation 54.5 fL (36.4-46.3); Red Blood Count 2.59 M/uL (4.2-5.4); White Blood Count 8.71 K/uL (4.8-10.8)
[2019-03-24 07:31] LABS: BUN Creatinine Ratio 34.9 (10-20); Calcium 8.2 mg/dl (8.5-10.1); Est GFR (African American) 72.4; Est GFR (Non-African American) 62.5; Magnesium 1.9 mg/dl (1.8-2.4); Potassium 4.1 mmol/L (3.5-5.1)
[2019-03-24] MEDS: FLUTICASONE/SALMETEROL 250/50 (ADVAIR) 14 PUFF/1 INHALER INH SCH ×2 (07:47→21:01)
[2019-03-24] MEDS: CALCIUM CARBONATE 1250MG TAB PO SCH ×2 (07:48→20:59)
[2019-03-24] MEDS: POTASSIUM CHLORIDE 10 MEQ TABCR PO SCH (07:48)
[2019-03-24] MEDS: CITALOPRAM 40 MG TAB PO SCH (07:49)
[2019-03-24] MEDS: EZETIMIBE 10 MG TABLET PO SCH (07:49)
[2019-03-24] MEDS: CHOLECALCIFEROL 1,000 UNITS TAB PO SCH (07:49)
[2019-03-24] MEDS: DOCUSATE SODIUM/SENNA 50/8.6MG TAB PO SCH (07:49)
[2019-03-24] MEDS: MULTIVITAMIN TAB PO SCH (07:50)
[2019-03-24] MEDS: FOLIC ACID 1 MG TAB PO SCH (07:50)
[2019-03-24] MEDS: OLMESARTAN MEDOXOMIL 20 MG TAB PO SCH (07:50)
[2019-03-24] MEDS: METOPROLOL TARTRATE 25 MG TAB PO SCH ×2 (07:50→21:00)
[2019-03-24] MEDS: OMEGA-3 (PURIFIED FISH OIL) 1 GM CAP PO SCH (07:50)
--- NOTE | 2019-03-24 07:51 | XRay Report ---
XR chest 2V PA/lateral CLINICAL HISTORY: Pacemaker insertion. COMPARISON STUDY: Chest radiograph March 21, 2019. FINDINGS: Interval placement of a dual-lead left subclavian pacemaker is noted. Lead tips project ove r the right atrium and right ventricle. Cardiomegaly is noted. There is pulmonary vascular congestion with suspected mild pulmonary edema. No pneumothorax is identified. Trace right pleural effusion is noted. Spine fusion hardware is noted. IMPRESSION: No pneumothorax following placement of a dual lead left subclavian pacemaker. Electronically signed by: Tomas Barth M.D. 03/24/2019 7:49 AM
[2019-03-24] MEDS: NYSTATIN SUSP 500,000 U/5 ML UDC PO SCH ×4 (07:52→20:59)
[2019-03-24] MEDS: POLYETHYLENE (MIRALAX) 17 GM PACK PO SCH ×2 (07:52→21:00)
--- NOTE | 2019-03-24 10:58 | Orthopedic Progress Note ---
Date of Service March 24, 2019 Assessment & Plan (1) Hip fracture, left: Postop day 2 status post left bipolar hemiarthroplasty. PT and OT protocols as able. Weightbearing as tolerated. Continue abduction pillow while in bed. Anticoagulants resumed. Continue SCDs and ROGER hose Pain management as written DC planning- would recommend continued therapy at rehab facility for continued care prior to DC home. Subjective POD#2 S/P left hip bipolar She has no complaints today. resting comfortably in bed. Denies CP or dizziness today. Physical Exam Physical Exam: Toes mobile, NVI. Calves soft, non tender. Dressing in place. Results & Data Vital Signs (Past 12 Hours) Vital Signs Temp Pulse Pulse Resp BP Pulse Ox 03/24/19 07:08 36.6 C 62 18 118/51 L 97 03/24/19 03:37 36.7 C 61 20 134/48 L 98 03/24/19 01:30 67 03/23/19 23:49 36.5 C 62 22 92/46 L 97 (1) Hip fracture, left Encounter type: subsequent encounter Fracture type: closed Fracture healing: with routine healing Qualified Code(s): S72.002D - Fracture of unspecified part of neck of left femur, subsequent encounter for closed fracture with routine healing
--- NOTE | 2019-03-24 12:24 | Hospitalist Progress Note ---
Date of Service March 24, 2019 Assessment & Plan (1) Hip fracture, left: POD #2 s/p ORIF. Osteoporotic fracture. Doing well post-op vitamin D level wnl. DVT proph to start today with Lovenox x 3 weeks PT, OT. rehab referral in place Appreciate orthopedics assistance. (2) Syncope: Etiology uncertain but lack of prodromal symptoms highly suspicious for arrhythmia (bradycardia, pauses, etc). Dr Maldonado saw in consult. Loop recorder implantation was considered to try and capture the electrical cause of these events; however it was felt that it would likely be safer for the patient to undergo pacemaker placement in order to avoid another syncopal episode Thus, s/p pacemaker placement on 03/23 Doing well post-op, pacer functioning properly CXR negative for pneumothorax. Appreciate Dr Maldonado's assistance. -no raising LUE above shoulder x 4-6 weeks Will need Cardio follow up within 1 week (3) Acute blood loss anemia: Hgb dropped to 8.6 from 11-12, secondary to fracture of hip, blood loss and surgical blood loss contributing -had low BP yesterday which improved with small amount IVFs -repeat CBC at 1500 and transfuse for Hgb <8 -follow CBC daily -will need FeSO4 if does not get transfusion (4) LBBB (left bundle branch block): had incomplete LBBB in 2018; now has LBBB. doubt underlying CAD as cause. echo with normal LV function and normal wall motion. LBBB may be on basis of electrical axis deterioration/conduction disease. -now with pacer in place (5) Dyslipidemia: Continue with Zetia 10 mg p.o. daily, continue simvastatin 40 mg p.o. nightly, continue fish oil 2 caps p.o. daily (6) Hypokalemia: Replenished and improved (7) Hypertension: Continue metoprolol 12.5 mg p.o. twice daily but hold ARB due to low- normal BPs -she is indeed taking losartan 100mg daily at home (there was lisinopril given here and olmesartan as well) (8) Atrial fibrillation: h/o PAF as per daughter during hospitalization for back surgery in 2018 She was on Eliquis x 4 months and then stopped as had no further episodes Now has pacer in place No need for AC at this point -continue metoprolol (9) Depression: Continue citalopram 40 mg p.o. daily (10) Rheumatoid arthritis: Continue methotrexate 10 mg p.o. weekly on Sundays after wound heals from surgery-hold for now no flare at this time. -continue folic acid (11) COPD (chronic obstructive pulmonary disease): cont advair cont albuterol prn no exacerbation at this time chronic TURNER is likely due to COPD (and perhaps pulmonary HTN) (12) Pulmonary hypertension: could be due to COPD likely contributing to TURNER (13) Chronic kidney disease, stage 3a: baseline CrCl 40s/50s doing well, good UOP and BP imprved -continue to follow BMP in AM (14) Candidiasis of mouth and esophagus: improved likely due to chronic advair use nystatin 5cc qid (15) DVT prophylaxis: start lovenox 40mg once daily in AM dispo planning - good candidate for inpatient rehab ([facility]) as patient was living independently and performing all ADLs prior to admission; could tolerate 3 hours of Rx each day daughter updated on phone Awaiting insurance auth once insurance open on Tuesday Stable for downgrade to Med/Surg floor Subjective Feeling well, denies pain at pacer site. Has some pain in hip controllled with po pain meds. Denies chest pain or SOB, no abd pain or nausea. Discussed case with Cardio-pacer is functioning properly. Tele with NSR and paced rhythm, 60-70s Review of Systems Review of Systems: All systems reviewed & are unremarkable except as noted in HPI & below Physical Exam Constitutional: WD/WN, vitals as above Eyes: + anicteric sclerae Neck: trachea midline, no thyromegaly Respiratory: normal respiratory effort, lungs clear to auscultation Cardiovascular: RRR, no murmur, no edema Vessels: dorsalis pedis pulses present Chest (Breasts): Chest: + pacemaker (in place with dressing c/d/i) Gastrointestinal (Abdomen): normal bowel sounds, soft, nontender, no hepatosplenomegaly Musculoskeletal: Extremities: + extremities abnormal to inspection (left hip with dressing in place c/d/i), no cyanosis and no clubbing Skin: no rashes, warm and dry Neurologic: moves all extremities and awake; no focal motor deficits Psychiatric: A+Ox3, euthymic affect Genitourinary: Funez in place draining clear yello wurine Results & Data Vital Signs (Past 12 Hours) Vital Signs Temp Pulse Pulse Resp BP Pulse Ox 03/24/19 07:08 36.6 C 62 18 118/51 L 97 03/24/19 03:37 36.7 C 61 20 134/48 L 98 03/24/19 01:30 67 Laboratory Results 03/24/19 03/24/19 Range/Units 06:27 06:27 WBC 8.71 (4.8-10.8) K/uL RBC 2.59 L (4.2-5.4) M/uL Hgb 8.6 L (12.0-16.0) g/dL Hct 25.2 L (37-47) % MCV 97.3 (80-100) fL MCH 33.2 (25-34) pg MCHC 34.1 (32-36) g/dL RDW Std Deviation 54.5 H (36.4-46.3) fL RDW Coeff of Giuliana 15.7 H (11.5-14.5) % Plt Count 122 L (130-400) K/uL MPV 10.7 H (7.4-10.4) fL Immature Gran % (Auto) 0.1 % Neut % (Auto) 61.3 % Lymph % (Auto) 26.1 % Dixie % (Auto) 9.2 % Eos % (Auto) 3.1 % Baso % (Auto) 0.2 % Immature Gran # (Auto) 0.01 (0.00-0.02) K/uL Neut # (Auto) 5.34 (1.4-6.5) K/uL Lymph # (Auto) 2.27 (1.2-3.4) K/uL Dixie # (Auto) 0.80 H (0.11-0.59) K/uL Eos # (Auto) 0.27 (0-0.5) K/uL Baso # (Auto) 0.02 (0-0.2) K/uL Sodium 141 (136-145) mmol/L Potassium 4.1 (3.5-5.1) mmol/L Chloride 114 H (98-107) mmol/L Carbon Dioxide 23 (21-32) mmol/L Anion Gap 5.0 (3-11) BUN 31 H (7-18) mg/dl Creatinine 0.88 (0.6-1.2) mg/dl Est Cr Clr Drug Dosing 42.0 ml/min Est GFR ( Amer) 72.4 Est GFR (Non-Af Amer) 62.5 BUN/Creatinine Ratio 34.9 H (10-20) Glucose 95 (70-99) mg/dl Calcium 8.2 L (8.5-10.1) mg/dl Magnesium 1.9 (1.8-2.4) mg/dl PG Care Time/CCT Total # of Minutes Spent Total Time Spent with Patient: Total time spent is greater than 50% in coordination of care (as documented) at patient's floor/unit and/or counseling patient: (1) Hip fracture, left Encounter type: subsequent encounter Fracture type: closed Fracture healing: with routine healing Qualified Code(s): S72.002D - Fracture of unspecified part of neck of left femur, subsequent encounter for closed fracture with routine healing (2) Syncope Syncope type: unspecified Qualified Code(s): R55 - Syncope and collapse (3) Hypertension Hypertension type: essential hypertension Qualified Code(s): I10 - Essential (primary) hypertension (4) Atrial fibrillation Atrial fibrillation type: paroxysmal Qualified Code(s): I48.0 - Paroxysmal atrial fibrillation (5) Depression Depression Type: other depression Qualified Code(s): F32.89 - Other specified depressive episodes (6) Rheumatoid arthritis Rheumatoid arthritis location: multiple sites Rheumatoid factor presence: unspecified presence Qualified Code(s): M06.9 - Rheumatoid arthritis, unspecified (7) COPD (chronic obstructive pulmonary disease) COPD type: unspecified COPD Qualified Code(s): J44.9 - Chronic obstructive pulmonary disease, unspecified
[2019-03-24] MEDS: ENOXAPARIN INJ 40 MG/0.4 ML SYR SQ SCH (14:12)
[2019-03-24 15:19] LABS: Basophils # (auto) 0.02 K/uL (0-0.2); Basophils % (auto) 0.2 %; Eosinophils % (auto) 4.4 %; Hematocrit (blood only) 25.8 % (37-47); Hemoglobin 8.7 g/dL (12.0-16.0); Immature Granulocytes # (auto) 0.02 K/uL (0.00-0.02); Immature Granulocytes % (auto) 0.2 %; Lymphocytes # (auto) 2.98 K/uL (1.2-3.4); Lymphocytes % (auto) 32.9 %; Mean Corpuscular Hemoglobin 33.2 pg (25-34); Mean Corpuscular Hgb Conc 33.7 g/dL (32-36); Mean Corpuscular Volume 98.5 fL (80-100); Mean Platelet Volume 10.5 fL (7.4-10.4); Monocytes # (auto) 0.68 K/uL (0.11-0.59); Monocytes % (auto) 7.5 %; Neutrophils # (auto) 4.96 K/uL (1.4-6.5); Neutrophils % (auto) 54.8 %; Platelet Count 135 K/uL (130-400); RDW Coefficient of Variation 15.7 % (11.5-14.5); RDW Standard Deviation 55.2 fL (36.4-46.3); Red Blood Count 2.62 M/uL (4.2-5.4); White Blood Count 9.06 K/uL (4.8-10.8)
[2019-03-24] MEDS: MONTELUKAST SODIUM 10 MG TABLET PO SCH (20:59)
[2019-03-24] MEDS: SIMVASTATIN 40 MG TAB PO SCH (20:59)
[2019-03-25] MEDS: MoRPHine SULFATE 2 MG/ML CARP IV PRN ×4 (02:14→21:56)
[2019-03-25] MEDS: ACETAMINOPHEN 325 MG TAB PO PRN ×2 (03:27→23:22)
[2019-03-25 05:15] LABS: Basophils # (auto) 0.04 K/uL (0-0.2); Basophils % (auto) 0.5 %; Eosinophils # (auto) 0.42 K/uL (0-0.5); Eosinophils % (auto) 5.2 %; Hemoglobin 8.9 g/dL (12.0-16.0); Immature Granulocytes # (auto) 0.02 K/uL (0.00-0.02); Immature Granulocytes % (auto) 0.2 %; Lymphocytes # (auto) 2.37 K/uL (1.2-3.4); Lymphocytes % (auto) 29.1 %; Mean Corpuscular Hemoglobin 32.2 pg (25-34); Mean Corpuscular Volume 97.8 fL (80-100); Monocytes # (auto) 0.64 K/uL (0.11-0.59); Monocytes % (auto) 7.9 %; Neutrophils # (auto) 4.65 K/uL (1.4-6.5); Neutrophils % (auto) 57.1 %; Platelet Count 138 K/uL (130-400); RDW Coefficient of Variation 15.7 % (11.5-14.5); RDW Standard Deviation 55.3 fL (36.4-46.3); Red Blood Count 2.76 M/uL (4.2-5.4); White Blood Count 8.14 K/uL (4.8-10.8)
[2019-03-25 05:56] LABS: BUN Creatinine Ratio 23.3 (10-20); Calcium 8.2 mg/dl (8.5-10.1); Creatinine Clr Calc Pharmacy 48.6 ml/min; Est GFR (African American) 86.5; Est GFR (Non-African American) 74.6; Potassium 3.6 mmol/L (3.5-5.1)
[2019-03-25] MEDS: FLUTICASONE/SALMETEROL 250/50 (ADVAIR) 14 PUFF/1 INHALER INH SCH ×2 (08:52→20:05)
[2019-03-25] MEDS: POLYETHYLENE (MIRALAX) 17 GM PACK PO SCH ×2 (08:53→20:09)
[2019-03-25] MEDS: NYSTATIN SUSP 500,000 U/5 ML UDC PO SCH ×4 (08:53→20:06)
[2019-03-25] MEDS: CALCIUM CARBONATE 1250MG TAB PO SCH ×2 (08:54→20:08)
[2019-03-25] MEDS: CITALOPRAM 40 MG TAB PO SCH (08:54)
[2019-03-25] MEDS: EZETIMIBE 10 MG TABLET PO SCH (08:54)
[2019-03-25] MEDS: MULTIVITAMIN TAB PO SCH (08:54)
[2019-03-25] MEDS: CHOLECALCIFEROL 1,000 UNITS TAB PO SCH (08:54)
[2019-03-25] MEDS: ASPIRIN 81 MG ECTAB PO SCH (08:55)
[2019-03-25] MEDS: DOCUSATE SODIUM/SENNA 50/8.6MG TAB PO SCH (08:55)
[2019-03-25] MEDS: OMEGA-3 (PURIFIED FISH OIL) 1 GM CAP PO SCH (08:55)
[2019-03-25] MEDS: FOLIC ACID 1 MG TAB PO SCH (08:56)
[2019-03-25] MEDS: METOPROLOL TARTRATE 25 MG TAB PO SCH ×2 (08:56→20:08)
[2019-03-25] MEDS ORDERED: POTASSIUM CHLORIDE 20 MEQ TABCR PO STA (09:10)
--- NOTE | 2019-03-25 09:31 | Orthopedic Progress Note ---
Date of Service March 25, 2019 Assessment & Plan (1) Hip fracture, left: Postop day 3 status post left bipolar hemiarthroplasty. PT and OT protocols as able. Weightbearing as tolerated. Continue abduction pillow while in bed. Anticoagulants resumed. Continue SCDs and ROGER hose DC planning- would recommend continued therapy at rehab facility for continued care prior to DC home. Subjective POD#2 S/P left hip bipolar She has no complaints today. resting comfortably in bed. Denies CP or dizziness today. she states that she is ready to get out of here Physical Exam Physical Exam: Toes mobile, NVI. Calves soft, non tender. Dressing in place. Results & Data Vital Signs (Past 12 Hours) Vital Signs Temp Pulse Resp BP Pulse Ox 03/25/19 07:12 36.8 C 64 16 144/66 H 95 03/24/19 23:00 36.7 C 67 16 150/60 H 93 (1) Hip fracture, left Encounter type: subsequent encounter Fracture type: closed Fracture healing: with routine healing Qualified Code(s): S72.002D - Fracture of unspecified part of neck of left femur, subsequent encounter for closed fracture with routine healing
[2019-03-25] MEDS: ENOXAPARIN INJ 40 MG/0.4 ML SYR SQ SCH (13:12)
--- NOTE | 2019-03-25 14:57 | Hospitalist Progress Note ---
Date of Service March 25, 2019 Assessment & Plan (1) Hip fracture, left: POD #3 s/p ORIF. Osteoporotic fracture. Doing very well post-op, although hasn't had much time spent with PT, has only walked a few steps vitamin D level wnl. DVT proph with Lovenox x 3 weeks PT, OT. rehab referral in place and awaiting insurance to open on Tuesday for auth Appreciate orthopedics assistance. -continue PT/OT while in house -continue abductor pillow between legs while in bed (2) Syncope: Etiology uncertain but lack of prodromal symptoms was highly suspicious for arrhythmia (bradycardia, pauses, etc). Dr Maldonado saw in consult. Loop recorder implantation was considered to try and capture the electrical cause of these events; however it was felt that it would likely be safer for the patient to undergo pacemaker placement in order to avoid another syncopal episode Now s/p pacemaker placement on 03/23 Doing well post-op, pacer functioning properly CXR negative for pneumothorax. Appreciate Dr Maldonado's assistance. -no raising LUE above shoulder x 4-6 weeks, no heavy lifting with LUE, sling is just a reminder to limit use Will need Cardio follow up within 1 week (3) Acute blood loss anemia: Hgb dropped to 8.6 from 11-12, secondary to fracture of hip, blood loss and surgical blood loss contributing -had low BP the day of pacer placement which improved with small amount IVFs -hgb now stable at 8.9 -follow CBC daily -will start FeSO4 supplementation x 2 weeks -transfuse if hgb<8 (4) LBBB (left bundle branch block): had incomplete LBBB in 2018; now has LBBB. doubt underlying CAD as cause. echo with normal LV function and normal wall motion. LBBB may be on basis of electrical axis deterioration/conduction disease. -now with pacer in place (5) Dyslipidemia: Continue with Zetia 10 mg p.o. daily, continue simvastatin 40 mg p.o. nightly, continue fish oil 2 caps p.o. daily (6) Hypokalemia: keep K>4.0 given cardiac issues -give KCl 40meq po x 1 today follow BMP in AM (7) Hypertension: Continue metoprolol 12.5 mg p.o. twice daily but was holding ARB due to low-normal BPs -she is indeed taking losartan 100mg daily at home as confirmed by her daughter (there was lisinopril given here and olmesartan as well and confusion on the home med rec) -restart losartan in the AM as BPs now high (8) Atrial fibrillation: h/o PAF as per daughter during hospitalization for back surgery in 2018 She was on Eliquis x 4 months and then stopped as had no further episodes Now has pacer in place No need for AC at this point but if develops Afib on pacer interrogation, then would treat -continue metoprolol -replacing K+ as above (9) Depression: Stable -Continue citalopram 40 mg p.o. daily (10) Rheumatoid arthritis: HOLD methotrexate 10 mg p.o. weekly on Sundays unitl after wound heals from surgery SHe hld her MTX for many months after her back surgery and had no flare of her RA no flare at this time. -continue folic acid (11) COPD (chronic obstructive pulmonary disease): cont advair cont albuterol prn no exacerbation at this time chronic TURNER is likely due to COPD (and perhaps pulmonary HTN) (12) Pulmonary hypertension: could be due to COPD likely contributing to TURNER (13) Chronic kidney disease, stage 3a: baseline CrCl 40s/50s doing well, good UOP and BP im -restarting losartan as above (14) Candidiasis of mouth and esophagus: improved likely due to chronic advair use nystatin 5cc qid (15) DVT prophylaxis: lovenox 40mg once daily in AM x 3 weeks for Hip surgery dispo planning - good candidate for inpatient rehab ([facility]) as patient was living independently and performing all ADLs prior to admission; could tolerate 3 hours of Rx each day daughter updated at bedside Awaiting insurance auth once insurance open on Tuesday Subjective Feeling very well. Has pain in her pacer surgical site but responds to pain pills. Pain in left hip is "always there" but controlled. Is OOB to chair, pleasant, eating, no N/V, is moving her bowels today, making urine and voiding since Funez removed yesterday. Only ambulated a few steps with PT today. Denies CP or SOB, not lightheaded, no headache. Review of Systems Review of Systems: All systems reviewed & are unremarkable except as noted in HPI & below Physical Exam Constitutional: WD/WN, vitals as above Eyes: + anicteric sclerae Neck: trachea midline, no thyromegaly Respiratory: normal respiratory effort, lungs clear to auscultation Cardiovascular: RRR, no murmur, no edema Vessels: dorsalis pedis pulses present Chest (Breasts): Chest: + pacemaker (in place with dressing c/d/i) Gastrointestinal (Abdomen): normal bowel sounds, soft, nontender, no hepatosplenomegaly Musculoskeletal: Extremities: + extremities abnormal to inspection (left hip with dressing in place c/d/i), no cyanosis and no clubbing Skin: no rashes, warm and dry Neurologic: moves all extremities and awake; no focal motor deficits Psychiatric: A+Ox3, euthymic affect Results & Data Vital Signs (Past 12 Hours) Vital Signs Temp Pulse Resp BP Pulse Ox 03/25/19 09:38 93 03/25/19 07:12 36.8 C 64 16 144/66 H 95 Laboratory Results Labs reviewed Hgb stable at 8.9 K+ 3.6 PG Care Time/CCT Total # of Minutes Spent Total Time Spent with Patient: Total time spent is greater than 50% in coordination of care (as documented) at patient's floor/unit and/or counseling patient: (1) Rheumatoid arthritis Rheumatoid arthritis location: multiple sites Rheumatoid factor presence: unspecified presence Qualified Code(s): M06.9 - Rheumatoid arthritis, unspecified (2) Atrial fibrillation Atrial fibrillation type: paroxysmal Qualified Code(s): I48.0 - Paroxysmal atrial fibrillation (3) Depression Depression Type: other depression Qualified Code(s): F32.89 - Other specified depressive episodes (4) Syncope Syncope type: unspecified Qualified Code(s): R55 - Syncope and collapse (5) COPD (chronic obstructive pulmonary disease) COPD type: unspecified COPD Qualified Code(s): J44.9 - Chronic obstructive pulmonary disease, unspecified (6) Hip fracture, left Encounter type: subsequent encounter Fracture healing: with routine healing Fracture type: closed Qualified Code(s): S72.002D - Fracture of unspecified part of neck of left femur, subsequent encounter for closed fracture with routine healing (7) Hypertension Hypertension type: essential hypertension Qualified Code(s): I10 - Essential (primary) hypertension
[2019-03-25] MEDS ORDERED: INFLUENZA ADMINISTRATION CHARGE ONE (15:15)
[2019-03-25] MEDS ORDERED: INFLUENZA VACCINE HIGH DOSE 65+ 0.5 ML SYR IM ONE (15:15)
[2019-03-25] MEDS: SIMVASTATIN 40 MG TAB PO SCH (20:08)
[2019-03-25] MEDS: MONTELUKAST SODIUM 10 MG TABLET PO SCH (20:08)
[2019-03-26 05:17] LABS: Basophils # (auto) 0.03 K/uL (0-0.2); Basophils % (auto) 0.5 %; Eosinophils # (auto) 0.47 K/uL (0-0.5); Eosinophils % (auto) 7.1 %; Hematocrit (blood only) 27.7 % (37-47); Immature Granulocytes # (auto) 0.01 K/uL (0.00-0.02); Immature Granulocytes % (auto) 0.2 %; Lymphocytes # (auto) 2.93 K/uL (1.2-3.4); Lymphocytes % (auto) 44.1 %; Mean Corpuscular Hemoglobin 32.3 pg (25-34); Mean Corpuscular Hgb Conc 32.5 g/dL (32-36); Mean Corpuscular Volume 99.3 fL (80-100); Mean Platelet Volume 10.4 fL (7.4-10.4); Monocytes # (auto) 0.54 K/uL (0.11-0.59); Monocytes % (auto) 8.1 %; Neutrophils # (auto) 2.67 K/uL (1.4-6.5); Platelet Count 155 K/uL (130-400); RDW Coefficient of Variation 15.8 % (11.5-14.5); RDW Standard Deviation 57.5 fL (36.4-46.3); Red Blood Count 2.79 M/uL (4.2-5.4); White Blood Count 6.65 K/uL (4.8-10.8)
[2019-03-26 05:48] LABS: BUN Creatinine Ratio 20.2 (10-20); Calcium 8.7 mg/dl (8.5-10.1); Creatinine Clr Calc Pharmacy 46.2 ml/min; Est GFR (African American) 81.3; Est GFR (Non-African American) 70.1; Potassium 4.1 mmol/L (3.5-5.1)
[2019-03-26] MEDS: FERROUS SULFATE 325 MG TAB PO SCH ×2 (08:34→17:35)
[2019-03-26] MEDS: LOSARTAN POTASSIUM 50 MG TAB PO SCH (08:34)
[2019-03-26] MEDS: FLUTICASONE/SALMETEROL 250/50 (ADVAIR) 14 PUFF/1 INHALER INH SCH ×2 (08:35→21:54)
[2019-03-26] MEDS: CHOLECALCIFEROL 1,000 UNITS TAB PO SCH (08:35)
[2019-03-26] MEDS: METOPROLOL TARTRATE 25 MG TAB PO SCH ×2 (08:35→21:54)
[2019-03-26] MEDS: CITALOPRAM 40 MG TAB PO SCH (08:35)
[2019-03-26] MEDS: CALCIUM CARBONATE 1250MG TAB PO SCH ×2 (08:35→21:54)
[2019-03-26] MEDS: FOLIC ACID 1 MG TAB PO SCH (08:36)
[2019-03-26] MEDS: MULTIVITAMIN TAB PO SCH (08:36)
[2019-03-26] MEDS: EZETIMIBE 10 MG TABLET PO SCH (08:37)
[2019-03-26] MEDS: OMEGA-3 (PURIFIED FISH OIL) 1 GM CAP PO SCH (08:37)
[2019-03-26] MEDS: ASPIRIN 81 MG ECTAB PO SCH (08:37)
[2019-03-26] MEDS: NYSTATIN SUSP 500,000 U/5 ML UDC PO SCH ×4 (08:38→21:54)
[2019-03-26] MEDS: POLYETHYLENE (MIRALAX) 17 GM PACK PO SCH ×2 (08:40→21:52)
[2019-03-26] MEDS: DOCUSATE SODIUM/SENNA 50/8.6MG TAB PO SCH (08:40)
[2019-03-26] MEDS: ACETAMINOPHEN 325 MG TAB PO PRN ×3 (13:08→22:02)
[2019-03-26] MEDS: ENOXAPARIN INJ 40 MG/0.4 ML SYR SQ SCH (13:09)
--- NOTE | 2019-03-26 15:24 | Hospitalist Progress Note ---
Date of Service March 26, 2019 Assessment & Plan (1) Hip fracture, left: s/p ORIF. Osteoporotic fracture. vitamin D level wnl. DVT proph with Lovenox x 3 weeks PT, OT - awaiting auth for [facility] has signed off (2) Syncope: Etiology uncertain but lack of prodromal symptoms was highly suspicious for arrhythmia (bradycardia, pauses, etc). Dr Maldonado saw in consult. Loop recorder implantation was considered to try and capture the electrical cause of these events; however it was felt that it would likely be safer for the patient to undergo pacemaker placement in order to avoid another syncopal episode S/p pacemaker placement on 03/23 Doing well post-op, pacer functioning properly CXR negative for pneumothorax. Appreciate Dr Maldonado's assistance. -no raising LUE above shoulder x 4-6 weeks, no heavy lifting with LUE, sling is just a reminder to limit use Will need Cardio follow up within 1 week (3) Acute blood loss anemia: Hgb stable around 9 after drop [id number], secondary to fracture of hip, blood loss and surgical blood loss contributing -had low BP the day of pacer placement which improved with small amount IVFs -FeSO4 supplementation x 2 weeks (4) LBBB (left bundle branch block): had incomplete LBBB in 2018; now has LBBB. doubt underlying CAD as cause. echo with normal LV function and normal wall motion. LBBB may be on basis of electrical axis deterioration/conduction disease. -now with pacer in place (5) Dyslipidemia: Continue with Zetia 10 mg p.o. daily, continue simvastatin 40 mg p.o. nightly, continue fish oil 2 caps p.o. daily (6) Hypokalemia: Resolved (7) Hypertension: Continue metoprolol 12.5 mg p.o. twice daily and losartan (8) Atrial fibrillation: h/o PAF as per daughter during hospitalization for back surgery in 2018 She was on Eliquis x 4 months and then stopped as had no further episodes Now has pacer in place No need for AC at this point but if develops Afib on pacer interrogation, then would treat -continue metoprolol (9) Depression: Stable -Continue citalopram 40 mg p.o. daily (10) Rheumatoid arthritis: HOLD methotrexate 10 mg p.o. weekly on Sundays until after wound heals from surgery She held her MTX for many months after her back surgery and had no flare of her RA no flare at this time. -continue folic acid (11) COPD (chronic obstructive pulmonary disease): cont advair, albuterol no exacerbation at this time chronic TURNER is likely due to COPD (and perhaps pulmonary HTN) (12) Pulmonary hypertension: could be due to COPD likely contributing to TURNER (13) Chronic kidney disease, stage 3a: baseline CrCl 40s/50s avoid nephrotoxins where possible (14) Candidiasis of mouth and esophagus: improved likely due to chronic advair use nystatin 5cc qid (15) DVT prophylaxis: lovenox 40mg once daily in AM x 3 weeks for Hip surgery dispo planning - Awaiting insurance auth for [facility] Supervising Physician Co-Signing Physician Notes I have seen and examined patient with LANA Rivera and agree with her a ssessment and plan. Subjective Ms. Paul was up to a chair following therapy at the time of my evaluation. She did not have any complaints. Doing well. ROS Constitutional: no chills, aches, sweats or fever Respiratory: no sob,cough, sputum, or wheezing Cardiac: no chest pain, palpitations, edema, orthopnea or lightheadedness GI: no abdominal pain, nausea, vomiting, diarrhea or constipation : no dysuria or hesitancy Extremities: no joint pain or weakness Skin: no rash All other systems reviewed and negative Physical Exam Physical Exam: General: no distress Eyes: normal inspection, PERLL Respiratory: chest non tender, clear to auscultation, normal breath sounds, no respiratory distress, no accessory muscle use Cardiac: regular rate and rhythm, no rub or gallop, no murmur, no edema, no jvd GI/: active bowel sounds, no abd pain or tenderness, soft, non distended Extremities: normal range of motion, normal strength, non tender Neuro/Psych: alert and oriented x 3, normal mood and affect Skin: normal color, dry Results & Data Vital Signs (Past 12 Hours) Vital Signs Temp Pulse Resp BP Pulse Ox 03/26/19 15:04 37.0 C 62 17 138/57 L 97 03/26/19 07:06 36.5 C 60 18 186/74 H 96 PG Care Time/CCT Total # of Minutes Spent Total Time Spent with Patient: Total time spent is greater than 50% in coordination of care (as documented) at patient's floor/unit and/or counseling patient: (1) Rheumatoid arthritis Rheumatoid arthritis location: multiple sites Rheumatoid factor presence: unspecified presence Qualified Code(s): M06.9 - Rheumatoid arthritis, unspecified (2) Atrial fibrillation Atrial fibrillation type: paroxysmal Qualified Code(s): I48.0 - Paroxysmal atrial fibrillation (3) Depression Depression Type: other depression Qualified Code(s): F32.89 - Other specified depressive episodes (4) Syncope Syncope type: unspecified Qualified Code(s): R55 - Syncope and collapse (5) COPD (chronic obstructive pulmonary disease) COPD type: unspecified COPD Qualified Code(s): J44.9 - Chronic obstructive pulmonary disease, unspecified (6) Hip fracture, left Encounter type: subsequent encounter Fracture healing: with routine healing Fracture type: closed Qualified Code(s): S72.002D - Fracture of unspecified part of neck of left femur, subsequent encounter for closed fracture with routine healing (7) Hypertension Hypertension type: essential hypertension Qualified Code(s): I10 - Essential (primary) hypertension
[2019-03-26] MEDS: SIMVASTATIN 40 MG TAB PO SCH (21:54)
[2019-03-26] MEDS: MONTELUKAST SODIUM 10 MG TABLET PO SCH (21:58)
[2019-03-27 05:36] LABS: Basophils # (auto) 0.02 K/uL (0-0.2); Basophils % (auto) 0.4 %; Eosinophils # (auto) 0.37 K/uL (0-0.5); Eosinophils % (auto) 6.7 %; Hematocrit (blood only) 29.3 % (37-47); Hemoglobin 9.6 g/dL (12.0-16.0); Immature Granulocytes # (auto) 0.03 K/uL (0.00-0.02); Immature Granulocytes % (auto) 0.5 %; Lymphocytes % (auto) 32.8 %; Mean Corpuscular Hemoglobin 32.7 pg (25-34); Mean Corpuscular Hgb Conc 32.8 g/dL (32-36); Mean Corpuscular Volume 99.7 fL (80-100); Mean Platelet Volume 9.9 fL (7.4-10.4); Monocytes % (auto) 10.9 %; Neutrophils # (auto) 2.67 K/uL (1.4-6.5); Neutrophils % (auto) 48.7 %; Platelet Count 170 K/uL (130-400); RDW Coefficient of Variation 15.6 % (11.5-14.5); RDW Standard Deviation 56.6 fL (36.4-46.3); Red Blood Count 2.94 M/uL (4.2-5.4); White Blood Count 5.49 K/uL (4.8-10.8)
[2019-03-27 06:04] LABS: BUN Creatinine Ratio 21.3 (10-20); Calcium 8.7 mg/dl (8.5-10.1); Creatinine Clr Calc Pharmacy 40.6 ml/min; Est GFR (African American) 69.5; Potassium 3.7 mmol/L (3.5-5.1)
[2019-03-27] MEDS: ACETAMINOPHEN 325 MG TAB PO PRN ×2 (06:28→14:22)
[2019-03-27 07:31] VITALS: TEMP 98.1; O2SAT 98
[2019-03-27] MEDS: EZETIMIBE 10 MG TABLET PO SCH (08:42)
[2019-03-27] MEDS: CALCIUM CARBONATE 1250MG TAB PO SCH (08:42)
[2019-03-27] MEDS: CITALOPRAM 40 MG TAB PO SCH (08:42)
[2019-03-27] MEDS: FLUTICASONE/SALMETEROL 250/50 (ADVAIR) 14 PUFF/1 INHALER INH SCH (08:42)
[2019-03-27] MEDS: FERROUS SULFATE 325 MG TAB PO SCH (08:43)
[2019-03-27] MEDS: MULTIVITAMIN TAB PO SCH (08:43)
[2019-03-27] MEDS: METOPROLOL TARTRATE 25 MG TAB PO SCH (08:43)
[2019-03-27] MEDS: LOSARTAN POTASSIUM 50 MG TAB PO SCH (08:43)
[2019-03-27] MEDS: ASPIRIN 81 MG ECTAB PO SCH (08:43)
[2019-03-27] MEDS: CHOLECALCIFEROL 1,000 UNITS TAB PO SCH (08:43)
[2019-03-27] MEDS: FOLIC ACID 1 MG TAB PO SCH (08:44)
[2019-03-27] MEDS: NYSTATIN SUSP 500,000 U/5 ML UDC PO SCH ×2 (08:44→12:48)
[2019-03-27] MEDS: OMEGA-3 (PURIFIED FISH OIL) 1 GM CAP PO SCH (08:44)
[2019-03-27] MEDS: POLYETHYLENE (MIRALAX) 17 GM PACK PO SCH (08:47)
[2019-03-27] MEDS: DOCUSATE SODIUM/SENNA 50/8.6MG TAB PO SCH (10:28)
[2019-03-27] MEDS: ENOXAPARIN INJ 40 MG/0.4 ML SYR SQ SCH (12:47)
--- NOTE | 2019-03-27 12:49 | Hospitalist Progress Note ---
Date of Service March 27, 2019 Assessment & Plan (1) Hip fracture, left: s/p ORIF 03/23 following osteoporotic fracture. vitamin D level wnl. DVT proph with Lovenox x 3 weeks PT, OT - awaiting auth for [facility] has signed off (2) Syncope: Etiology uncertain but lack of prodromal symptoms was highly suspicious for arrhythmia (bradycardia, pauses, etc). Dr Maldonado saw in consult. Loop recorder implantation was considered to try and capture the electrical cause of these events; however it was felt that it would likely be safer for the patient to undergo pacemaker placement in order to avoid another syncopal episode S/p pacemaker placement on 03/23 Doing well post-op, pacer functioning properly CXR negative for pneumothorax. Appreciate Dr Maldonado's assistance. -no raising LUE above shoulder x 4-6 weeks, no heavy lifting with LUE, sling is just a reminder to limit use Will need Cardio follow up within 1 week (3) Acute blood loss anemia: Hgb remains stable around 9 after drop [id number], secondary to fracture of hip, blood loss and surgical blood loss contributing -had low BP the day of pacer placement which improved with small amount IVFs -FeSO4 supplementation x 2 weeks (4) LBBB (left bundle branch block): had incomplete LBBB in 2018; now has LBBB. doubt underlying CAD as cause. echo with normal LV function and normal wall motion. LBBB may be on basis of electrical axis deterioration/conduction disease. -now with pacer in place (5) Dyslipidemia: Continue with Zetia 10 mg p.o. daily, continue simvastatin 40 mg p.o. nightly, continue fish oil 2 caps p.o. daily (6) Hypokalemia: Resolved (7) Hypertension: Continue metoprolol 12.5 mg p.o. twice daily and losartan (8) Atrial fibrillation: h/o PAF as per daughter during hospitalization for back surgery in 2018 She was on Eliquis x 4 months and then stopped as had no further episodes Now has pacer in place No need for AC at this point but if develops Afib on pacer interrogation, then would treat -continue metoprolol (9) Depression: Stable -Continue citalopram 40 mg p.o. daily (10) Rheumatoid arthritis: HOLD methotrexate 10 mg p.o. weekly on Sundays until after wound heals from surgery She held her MTX for many months after her back surgery and had no flare of her RA no flare at this time. -continue folic acid (11) COPD (chronic obstructive pulmonary disease): cont advair, albuterol no exacerbation at this time chronic TURNER is likely due to COPD (and perhaps pulmonary HTN) (12) Pulmonary hypertension: could be due to COPD likely contributing to TURNER (13) Chronic kidney disease, stage 3a: baseline CrCl 40s/50s avoid nephrotoxins where possible (14) Candidiasis of mouth and esophagus: improved likely due to chronic advair use nystatin 5cc qid (15) DVT prophylaxis: lovenox 40mg once daily in AM x 3 weeks for Hip surgery dispo planning - Awaiting insurance auth for [facility] Supervising Physician Co-Signing Physician Notes I have seen and examined patient with Hanna Rivera and agree with the assessment and plan. Subjective Ms. Paul is up to a chair, feeling well. She has no complaints. ROS Constitutional: no chills, aches, sweats or fever Respiratory: no sob,cough, sputum, or wheezing Cardiac: no chest pain, palpitations, edema, orthopnea or lightheadedness GI: no abdominal pain, nausea, vomiting, diarrhea or constipation : no dysuria or hesitancy Extremities: no joint pain or weakness Skin: no rash All other systems reviewed and negative Physical Exam 2 Physical Exam: General: no distress Eyes: normal inspection, PERLL Respiratory: chest non tender, clear to auscultation, normal breath sounds, no respiratory distress, no accessory muscle use Cardiac: regular rate and rhythm, no rub or gallop, systolic murmur, no edema, no jvd GI/: active bowel sounds, no abd pain or tenderness, soft, non distended Extremities: normal range of motion, normal strength, non tender Neuro/Psych: alert and oriented x 3, normal mood and affect Skin: normal color, dry Results & Data Vital Signs (Past 12 Hours) Vital Signs Temp Pulse Resp BP Pulse Ox 03/27/19 07:30 36.7 C 76 16 151/54 H 98 PG Care Time/CCT Total # of Minutes Spent Total Time Spent with Patient: Total time spent is greater than 50% in coordination of care (as documented) at patient's floor/unit and/or counseling patient: (1) Rheumatoid arthritis Rheumatoid arthritis location: multiple sites Rheumatoid factor presence: unspecified presence Qualified Code(s): M06.9 - Rheumatoid arthritis, unspecified (2) Atrial fibrillation Atrial fibrillation type: paroxysmal Qualified Code(s): I48.0 - Paroxysmal atrial fibrillation (3) Depression Depression Type: other depression Qualified Code(s): F32.89 - Other specified depressive episodes (4) Syncope Syncope type: unspecified Qualified Code(s): R55 - Syncope and collapse (5) COPD (chronic obstructive pulmonary disease) COPD type: unspecified COPD Qualified Code(s): J44.9 - Chronic obstructive pulmonary disease, unspecified (6) Hip fracture, left Encounter type: subsequent encounter Fracture healing: with routine healing Fracture type: closed Qualified Code(s): S72.002D - Fracture of unspecified part of neck of left femur, subsequent encounter for closed fracture with routine healing (7) Hypertension Hypertension type: essential hypertension Qualified Code(s): I10 - Essential (primary) hypertension
--- NOTE | 2019-03-27 14:13 | Discharge Summary ---
Date of Service March 27, 2019 Admission HPI Per Admitting Provider Patient is a 79 years old female with past medical history of prior paroxysmal atrial fibrillation with RVR, hypertension, RA, depression, dyslipidemia, pulmonary hypertension, mitral regurgitation, anemia, moderate dementia , epidural abscess status post spinal cord procedure by Dr. Vega a year ago who is direct admit from [facility] and status post fall that occurred this morning while patient was gardening. Per patient daughter who does not live with her she reports that possibly patient blacked out and that is why she fell. She said months ago patient had similar syncopal episode. Patient was in the past with atrial fibrillation and for 1 months she did not fill her Eliquis and because of it she was taken off of Eliquis by her primary physician. Today patient is in normal sinus rhythm. Patient is poor historian. Pt daughter denies that pt has fever, chills, chest pain, SOB , abdominal pain, frequency and urgency. She said that she does not remember exactly her fall. She remembers that she sat for a long time in her garden after she fell. Patient said for pain she only take Aleve. Labs were reviewed: Viable cell 9.94, hemoglobin 12.7, hematocrit 37.6, platelets 178, PT PTT INR pending, sodium 139,K 3.4, Chloride 109, BUN 6, creatinine 0.82, GFR 68.1, BNP 2822. CXR preop pending, XR L Hip Pending, TTE pending. Consult Ortho. Principal Diagnosis Left femoral fracture Discharge Exam General: no distress Eyes: normal inspection, PERLL Respiratory: chest non tender, clear to auscultation, normal breath sounds, no respiratory distress, no accessory muscle use Cardiac: regular rate and rhythm, no rub or gallop, systolic murmur, no edema, no jvd GI/: active bowel sounds, no abd pain or tenderness, soft, non distended Extremities: normal range of motion, normal strength, non tender Neuro/Psych: alert and oriented x 3, normal mood and affect Skin: normal color, dry, incision well approximated without drainage, lucien intact Discharge Data Allergies Allergy/AdvReac Type Severity Reaction Status Date / Time No Known Allergies Allergy Unverified 03/15/18 14:35 Consultations 03/21/19 21:10 Consult Orthopedic Surgery Routine 03/22/19 18:42 Consult Case Management - Discharge Planning Routine 03/23/19 12:21 Consult Cardiology Routine Procedures Performed Operation Date: 03/22/19 11:30 Actual Procedures p Left Bipolar Hip(Left) - Hima Rice DO Operation Date: 03/23/19 11:00 Actual Procedures p Pacer with A/V Leads (Dual) - Naveen Maldonado MD s Venogram, Unilateral - Naveen Maldonado MD Ordered Studies 03/23/19 06:50 CL Cath Imgs for PACS use only Routine 03/23/19 12:30 EP Lab Images for PACS ONCE Hospital Course (1) Hip fracture, left: s/p ORIF 03/23 following osteoporotic fracture. vitamin D level wnl. DVT proph with Lovenox x 3 weeks PT, OT Ortho has signed off (2) Syncope: Etiology uncertain but lack of prodromal symptoms was highly suspicious for arrhythmia (bradycardia, pauses, etc). Dr Maldonado saw in consult. Loop recorder implantation was considered to try and capture the electrical cause of these events; however it was felt that it would likely be safer for the patient to undergo pacemaker placement in order to avoid another syncopal episode S/p pacemaker placement on 03/23 Doing well post-op, pacer functioning properly CXR negative for pneumothorax. Appreciate Dr Maldonado's assistance. -no raising LUE above shoulder x 4-6 weeks, no heavy lifting with LUE, sling is just a reminder to limit use Will need Cardio follow up within 1 week (3) Acute blood loss anemia: Hgb remains stable around 9 after drop from 11-12, secondary to fracture of hip, blood loss and surgical blood loss contributing -had low BP the day of pacer placement which improved with small amount IVFs -FeSO4 supplementation x 2 weeks (4) LBBB (left bundle branch block): had incomplete LBBB in 2018; now has LBBB. doubt underlying CAD as cause. echo with normal LV function and normal wall motion. LBBB may be on basis of electrical axis deterioration/conduction disease. -now with pacer in place - no chest pain (5) Dyslipidemia: Continue with Zetia 10 mg p.o. daily, continue simvastatin 40 mg p.o. nightly, continue fish oil 2 caps p.o. daily (6) Hypokalemia: Resolved (7) Hypertension: Continue metoprolol 12.5 mg p.o. twice daily and losartan (8) Atrial fibrillation: h/o PAF as per daughter during hospitalization for back surgery in 2018 She was on Eliquis x 4 months and then stopped as had no further episodes Now has pacer in place No need for AC at this point but if develops Afib on pacer interrogation, then would treat -continue metoprolol (9) Depression: Stable -Continue citalopram 40 mg p.o. daily (10) Rheumatoid arthritis: HOLD methotrexate 10 mg p.o. weekly on Sundays until after wound heals from surgery She held her MTX for many months after her back surgery and had no flare of her RA no flare at this time. -continue folic acid (11) COPD (chronic obstructive pulmonary disease): cont advair, albuterol no exacerbation at this time chronic TURNER is likely due to COPD (and perhaps pulmonary HTN) (12) Pulmonary hypertension: could be due to COPD likely contributing to TURNER (13) Chronic kidney disease, stage 3a: baseline CrCl 40s/50s avoid nephrotoxins where possible (14) Candidiasis of mouth and esophagus: improved likely due to chronic advair use nystatin 5cc qid X 2 weeks (15) DVT prophylaxis: lovenox 40mg once daily in AM x 3 weeks for Hip surgery dispo planning - [facility] Total Time Total Time Spent Total Time Spent (In Minutes): greater than 30 minutes Discharge Plan Discharge Items Patient Disposition: Transfer Inpatient Rehab Fac Reason For Visit: LEFT FEMURAL NECK FRACTURE Discharge Diagnosis: left femoral neck fracture, s/p ORIF Activity: As commented below Activity Comment: hip precautions see below Non-emergency contact: Primary Care Provider Call non-emergency contact if: you have any medication questions, your symptoms worsen and your pain is not controlled Follow-up/Referrals: Aurelio Richardson PA-C [Physician Flat Breakdown Processor] - 04/18/19 1:30 pm Lonny Davison DO [Primary Care Provider] - Diet: Regular Addtl Attending Provider Instructions: Please see your primary care provider within the next two weeks. Please see Dr. Raya in a week to follow up pacemaker insertion on 03/23. See below for care instructions. HOLD methotrexate 10 mg p.o. weekly on Sundays until after wound heals from surgery Addtl Public Health Doctor Provider Instructions: ACTIVITY RECOMMENDATIONS: SELF CARE INSTRUCTIONS AFTER TOTAL HIP REPLACEMENT Until the incision and soft tissues around your hip have healed, there is a possibility that the hip prosthesis could dislocate. A. Observe the following precautions to prevent dislocation: 1. Don't bend your hip greater than 90 degrees. 2. Avoid crossing your legs or ankles while standing or lying. 3. Sit with your feet placed 6 inches apart. 4. When sitting, keep your knees below your hips. Sit on a firm surface, avoid deep, soft chairs and couches. Use an elevated toilet seat in the bathroom. 5. Don't bend over at the waist. Use a long handled shoehorn and a sock aid to help you put on your shoes and socks. A plumber pipe fitting can help you milk pickup driver objects that are too high or too low to reach. 6. Keep car riding to a minimum for at least one month after surgery. B. Your balance may be shaky for a while. Use crutches or a walker until directed by your doctor. C. Use hand rails when walking on stairs. D. Wear low heeled shoes with non-slip soles. E. Be sure that your floors are free of things that could trip you - throw rugs, electrical cords, small objects. Avoid wet and waxed floors, especially with crutches and canes. F. Try to walk several times a day with rest periods between. G. Continue with all the exercises taught to you in the hospital. Again, make walking a part of your daily routine. H. It is okay to shower if minimal to no drainage from incision. No baths. Do not soak wound. I. Physical Therapy as instructed by your Physician. SPECIAL CARE INSTRUCTIONS: VERY IMPORTANT TO READ AND REVIEW A. You may still be at risk for phlebitis and blood clots. 1. Wear surgical stockings (ROGER hose) for one month, 20 hours daily, after surgery to improve circulation and reduce swelling. 2. Take Coumadin, Xarelto, Lovenox or Aspirin (blood thinning medications), as directed by your doctor. 3. Have a pro-time (blood test) drawn according to your doctor's instructions. B. We encourage and will assist you in choosing a home-health agency of your choice. Home health nurses and therapists will monitor your temperature, wound healing and progress in exercise and walking. Home health nurses may also draw the blood for the pro-time test. They may instruct you in decreasing or increasing the amount of Coumadin you take. C. You must take antibiotics before having dental work, bladder, bowel and other surgery. Your doctor will provide you with a permanent card to carry describing precautions. D. Call [facility] if you have a temperature of 101 or greater, redness or swelling around the incision, cloudy drainage from incision, or sudden increase in pain in your hip, not relieved by your regular pain medication. E. Please call the office at if you have any concerns or questions about your operation or recovery. FOLLOW UP VISIT: If appointment is not already scheduled: Please call [facility] to make a follow-up appointment for One month after your surgery at . ACTIVITY RECOMMENDATIONS FOLLOWING PACEMAKER INSERTION: * Do not raise left arm over head until.April 06, 2019 SPECIAL CARE INSTRUCTIONS: * If bleeding occurs, apply direct pressure to area for 5 minutes. * Call your doctor if you have severe pain, fever, drainage or bleeding at site. * Keep any scheduled doctor's appointment. * Implant Card - hand held device with website information given. SKIN IRRITATION: * You may experience some redness and/or swelling in the area where radiation was administered. If any skin irritation occurs, please contact your family physician. FOLLOW UP VISIT: Keep any scheduled doctor appointments. Pending Studies at Discharge: No Stand-Alone Forms: My [facility] Skilled Items Patient informed of condition?: Yes DNR: No Discharge Level of Care: Acute rehab Communicable Disease: No Discharge Prognosis: Improving Lines: None Urinary Catheter: No Medications and DC Order Prescriptions: New nystatin 100,000 unit/mL Suspension 5 ml PO QID Qty: 40 RF: 0 enoxaparin 40 mg/0.4 mL Syringe 40 mg subcut Q24H Qty: 21 RF: 0 folic acid 1 mg Tablet 1 mg PO DAILY Qty: 30 RF: 0 ferrous sulfate 325 mg (65 mg iron) Tablet,Delayed Release (Dr/Ec) 325 mg PO BIDM Qty: 24 RF: 0 cholecalciferol (vitamin D3) [Vitamin D3] 25 mcg (1,000 unit) Tablet 1,000 unit PO DAILY Qty: 30 RF: 0 Continued losartan 100 mg tablet 100 mg PO QAM RF: 0 garlic 500 mg Capsule 500 mg PO DAILY RF: 0 aspirin [Aspirin Childrens] 81 mg Tablet,Chewable 81 mg PO DAILY RF: 0 folic acid 1 mg Tablet 1 mg PO DAILY RF: 0 ascorbic acid (vitamin C) 500 mg Tablet 500 mg PO DAILY RF: 0 albuterol sulfate 90 mcg/actuation Hfa Aerosol Inhaler 2 puff INHALATION QID RF: 0 triamcinolone acetonide 0.05 % Ointment 1 applic TOPICAL BID PRN (Reason: Rash) RF: 0 multivitamin Tablet 1 tab PO DAILY RF: 0 fluticasone propion-salmeterol [Advair Diskus] 250-50 mcg/dose Blister With Device 1 inh INHALATION BID RF: 0 citalopram 40 mg Tablet 40 mg PO DAILY RF: 0 simvastatin [Zocor] 40 mg Tablet 40 mg PO HS RF: 0 cranberry extract 250 mg Capsule 250 mg PO DAILY RF: 0 calcium carbonate 600 mg calcium (1,500 mg) Tablet 600 mg PO BID RF: 0 montelukast [Singulair] 10 mg Tablet 10 mg PO PM RF: 0 ezetimibe [Zetia] 10 mg Tablet 10 mg PO DAILY RF: 0 metoprolol tartrate 25 mg Tablet 12.5 mg PO BID RF: 0 omega 9-zas-usy-fish oil [Fish Oil] 1,000 mg (120 mg-180 mg) Capsule 1 cap PO DAILY RF: 0 Discontinued methotrexate sodium 2.5 mg tablet 10 mg PO WK RF: 0 Admission Data Admit Date/Time: 03/21/19 20:40 Attending Provider: Murphy Perez Admit Provider: Murphy Perez Primary Care Provider: Lonny Davison Other Providers: [facility] ; Cody Martin ; Naveen Maldonado
[2019-03-27 14:19] VITALS: BP 110/54; PULSE 62
== END 2019-03-27 15:20 | DRG 470 ==
LOC: SUATTDRO 20:40 → 2S 20:40 → 3W 03-24 12:17